=== PATIENT | male | born 1980 | race Caucasian/White ===

== ENCOUNTER 2017-06-25 18:01 | Emergency (ER) | payer SELFPAY ==
[2017-06-25 18:02] VITALS: BP 162/84; PULSE 87; RESP 16; TEMP 36.6; O2SAT 100; BMI 22.3
--- NOTE | 2017-06-25 18:36 | EKG12_ITS ---
Test Reason : SOB Blood Pressure : / mmHG Vent. Rate : 073 BPM Atrial Rate : 073 BPM P-R Int : 154 ms QRS Dur : 096 ms QT Int : 384 ms P-R-T Axes : 049 075 075 degrees QTc Int : 423 ms Normal sinus rhythm Left ventricular hypertrophy Abnormal ECG Confirmed by STEFANY MARTINEZ, CADE ([id number]), news video editor SAHIL ACEVES ([id number]) on 06/28/2017 1:34:31 PM Referred By: REYNALDO Confirmed By:CADE MCCALL MD
[2017-06-25 18:50] LABS: Absolute Lymphocyte Count 2.32 X10^3/ul (0.83-4.51); Absolute Neutrophil Count 6.7 X10^3/uL (2.0-7.7); Basophil# 0.07 X10^3/uL; Basophil% 0.6 % (0-1); Eosinophil# 0.81 X10^3/uL; Eosinophils% 7.2 % (0-5); Hematocrit 43.5 % (40-54); Hemoglobin 14.5 g/dl (13.0-16.5); Lymphocyte # 2.32 X10^3/ul (4.0); Lymphocyte % 20.7 % (19-41); Mean Corp Hgb Conc 33.3 g/gl (32-36); Mean Corpuscular Hgb 30.4 pg (27.0-32.0); Mean Corpuscular Volume 91.2 fL (80-94); Mean Platelet Vol. 9.6 fl (6.2-12.0); Monocyte# 1.27 X10^3/uL; Monocyte% 11.3 % (0-10); Neutrophil # 6.69 X10^3/uL (2.7-7.7); Neutrophil % 59.9 % (47-70); Platelet Count 216 K/mm3 (150-450); RBC Distribution Width CV 13.7 % (11.6-14.6); RBC Distribution Width SD 45.3 fl (35.1-43.9); Red Blood Count 4.77 M/mm3 (4.6-6.2); White Blood Count 11.2 K/mm3 (4.4-11.0)
--- NOTE | 2017-06-25 18:50 | RAD_ITS ---
STUDY: X-RAY CHEST REASON FOR EXAM: Male, 36 years old. Shortness of breath. History of aortic valve replacement 15 years ago. TECHNIQUE: PA and lateral views of the chest. COMPARISON: Prior chest radiograph of May 11, 2016 FINDINGS: The lungs are clear and expanded. There is no demonstrated pleural abnormality. Normal size heart. Status post prior midline sternotomy. Normal visualized pulmonary arteries. Calcific changes of anterior mediastinum or possibly the ascending aorta without dilatation stable from the prior exam. Normal visualized thoracic spine. Normal visualized ribs, clavicles, and shoulders. There is no demonstrated abnormality of the visualized soft tissue structures of the upper abdomen. RAD/Chest PA and Lateral IMPRESSION: No acute cardiopulmonary findings or changes. Negative for new consolidation, focal atelectasis or a substantial pleural effusion. Stable cardiac size status post prior midline sternotomy. Stable anterior mediastinal calcifications. Electronically Signed: Jany Boggs MD at 19:10 EDT , Service support ,
[2017-06-25] MEDS: Aspirin 81 MG TAB.CHEW 324 MG PO (18:53)
[2017-06-25 18:54] LABS: POSITIVE COUNT NO; POSITIVE DIFFERENTIAL NO; POSITIVE MORPHOLOGY NO
[2017-06-25 19:12] LABS: Anion Gap 6 (5-15); BUN 7 mg/dL (7-18); BUN/Creat Ratio 7.2 RATIO (10-20); Calcium,Total 8.2 mg/dL (8.5-10.1); Chloride 106 mmol/L (98-107); Creatinine, Serum 0.97 mg/dL (0.70-1.30); EST Glomerular Filtration Rate 94 mL/min (>60); Est Glom Filt Rate - Afr Amer 114 mL/min (>60); Estimated Creatinine Clearance 110.15 ml/min; Glucose 92 mg/dL (74-106); Potassium 3.9 mmol/L (3.5-5.1); Sodium Level 140 mmol/L (136-145)
[2017-06-25 19:20] LABS: BNP,B-Type NATRIURETIC PEPTIDE 110.8 pg/mL (0-100)
[2017-06-25 20:03] VITALS: RESP 18; O2SAT 100
--- NOTE | 2017-06-25 20:22 | ED.VISSUMM ---
- ER Visit Summary Date of Service: 06/25/17 Chief Complaint: Shortness of breath History of Present Illness: The patient is a 36 M presenting for evaluation due to shortness of breath. Patient states that he has a history of a aortic valve replacement that was performed 15 years ago. Patient states that he was told that the lifetime of his cadaver valve was probably around 12-15 years. Patient states that he has been noticing that he has been having a mild amount of increasing shortness of breath lately, but today he was carrying some pop and water into his house only 50 feet and felt that he was suddenly extremely dyspneic. Denies any chest pain with it. Denies any infectious signs or symptoms. 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 Physical Examination: Vital signs are within normal limits, patient is afebrile. General: Patient is well-nourished well-developed and in no acute distress. Head: Normocephalic, atraumatic Eyes: Pupils equal round and reactive bilaterally, extra occular motion intact bialterally ENT: Moist mucous membranes Neck: Supple, no lymphadenopathy, no JVD, no meningismus CVS: Heart regular rate and rhythm, 4 out of 6 murmur both systolic and diastolic noted over the right sternal border, rubs or gallops, radial pulses 2+ bilaterally Resp: Respirations nondistressed, lung sounds clear bilaterally Abdomen: Soft, nontender, nondistended, no palpable masses, normal bowel sounds Back: Nontender Extremities: Nontender, atraumatic, active full range of motion, no peripheral edema Skin: warm, no rashes, no petechia Neuro: Alert and oriented x 4, CN 2-12 intact, no lateralizing neurological defecits Psyc: Normal affect Test Results: CBC unremarkable, chemistry unremarkable, troponin negative, BNP mildly elevated at 110. Chest x-ray shows chronic changes no evidence of acute heart failure Emergency Department Course and Treatment: Patient presented with shortness of breath in the setting of a prosthetic aortic valve. Patient was evaluated for heart failure cardiac strain. His EKG shows LVH no evidence of acute ischemia. CBC chemistry troponin and BNP chest x-ray otherwise found to be unremarkable. Patient ambulated in the emergency department maintained oxygenation of 100%. Patient does very clearly have aortic insufficiency on physical exam as he has a significant diastolic murmur. I do not believe that the patient requires admission at this point, but I do believe that he should follow-up with his [facility] cardiology team to be evaluated for possible aortic valve replacement. Patient will be written for work restrictions no lifting greater than 50 pounds. Patient will follow up with cardiology. Disposition: Discharge Impression: 1. Dyspnea 2. Aortic regurgitation This note was generated with [employer] dictation software. It may contain incorrect words, spelling, and punctuation that were not noted in review of the chart prior to signing ED Disposition - Plan for ED Patient: Disposition: Home or Assisted Living Chief Complaint: General Illness Diagnosis: Aortic regurgitation Instructions: ED Dyspnea Shortness of Breath Additional Instructions: Followup with your cardiology team at [facility]
--- NOTE | 2017-06-25 20:27 | ED.DCSUM_ITS ---
- ER Visit Summary Date of Service: 06/25/17 Chief Complaint: Shortness of breath History of Present Illness: The patient is a 36 M presenting for evaluation due to shortness of breath. Patient states that he has a history of a aortic valve replacement that was performed 15 years ago. Patient states that he was told that the lifetime of his cadaver valve was probably around 12-15 years. Patient states that he has been noticing that he has been having a mild amount of increasing shortness of breath lately, but today he was carrying some pop and water into his house only 50 feet and felt that he was suddenly extremely dyspneic. Denies any chest pain with it. Denies any infectious signs or symptoms. 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 Physical Examination: Vital signs are within normal limits, patient is afebrile. General: Patient is well-nourished well-developed and in no acute distress. Head: Normocephalic, atraumatic Eyes: Pupils equal round and reactive bilaterally, extra occular motion intact bialterally ENT: Moist mucous membranes Neck: Supple, no lymphadenopathy, no JVD, no meningismus CVS: Heart regular rate and rhythm, 4 out of 6 murmur both systolic and diastolic noted over the right sternal border, rubs or gallops, radial pulses 2 + bilaterally Resp: Respirations nondistressed, lung sounds clear bilaterally Abdomen: Soft, nontender, nondistended, no palpable masses, normal bowel sounds Back: Nontender Extremities: Nontender, atraumatic, active full range of motion, no peripheral edema Skin: warm, no rashes, no petechia Neuro: Alert and oriented x 4, CN 2-12 intact, no lateralizing neurological defecits Psyc: Normal affect Test Results: CBC unremarkable, chemistry unremarkable, troponin negative, BNP mildly elevated at 110. Chest x-ray shows chronic changes no evidence of acute heart failure Emergency Department Course and Treatment: Patient presented with shortness of breath in the setting of a prosthetic aortic valve. Patient was evaluated for heart failure cardiac strain. His EKG shows LVH no evidence of acute ischemia. CBC chemistry troponin and BNP chest x-ray otherwise found to be unremarkable. Patient ambulated in the emergency department maintained oxygenation of 100%. Patient does very clearly have aortic insufficiency on physical exam as he has a significant diastolic murmur. I do not believe that the patient requires admission at this point, but I do believe that he should follow-up with his [facility] cardiology team to be evaluated for possible aortic valve replacement. Patient will be written for work restrictions no lifting greater than 50 pounds. Patient will follow up with cardiology. Disposition: Discharge Impression: 1. Dyspnea 2. Aortic regurgitation This note was generated with [employer] dictation software. It may contain incorrect words, spelling, and punctuation that were not noted in review of the chart prior to signing ED Disposition - Plan for ED Patient: Disposition: Home or Assisted Living Chief Complaint: General Illness Diagnosis: Aortic regurgitation Instructions: ED Dyspnea Shortness of Breath Additional Instructions: Followup with your cardiology team at [facility]
[2017-06-25 20:39] VITALS: BP 128/83; PULSE 77; RESP 18; O2SAT 98
== END 2017-06-25 20:40 | disposition home or self-care (01) ==
PROVIDERS: Emergency Provider Emergency Medicine
DX: R06.00 Dyspnea, unspecified (principal); I35.1 Nonrheumatic aortic (valve) insufficiency
CPT/HCPCS: 71046; 80048; 83880; 84484; 85025; 93005; 99285; A4216

== ENCOUNTER 2017-07-05 21:50 | Emergency (ER) | payer SELFPAY ==
[2017-07-05 21:51] VITALS: BP 127/67; PULSE 87; RESP 16; TEMP 37.1; O2SAT 98; BMI 23.1
--- NOTE | 2017-07-05 22:06 | NURSING ---
CALL CENTER CONSULTANT CALLED FOR EKG, PULLED OLD EKG'S FOR
--- NOTE | 2017-07-05 22:36 | EKG12_ITS ---
Test Reason : CHEST Blood Pressure : / mmHG Vent. Rate : 082 BPM Atrial Rate : 082 BPM P-R Int : 154 ms QRS Dur : 094 ms QT Int : 370 ms P-R-T Axes : 042 075 075 degrees QTc Int : 432 ms Normal sinus rhythm Left ventricular hypertrophy Abnormal ECG Confirmed by STEFANY MARTINEZ, CADE ([id number]), editorial intern SAHIL ACEVES ([id number]) on 07/08/2017 1:54:00 PM Referred By: Confirmed By:CADE MCCALL MD
[2017-07-05 22:46] VITALS: BP 122/74; PULSE 78; RESP 14; O2SAT 98
--- NOTE | 2017-07-05 22:48 | ED.DCSUM_ITS ---
- ER Visit Summary Date of Service: 07/05/17 Chief Complaint: [] Palpitations History of Present Illness: The patient is a 36 M complaining of palpitations for last 4 days gradual onset intermittent lasting seconds at a time. Feels in his chest. No pain. Occasionally feels pauses. Seen in the emergency department approximately 10 days ago and had workup for some dyspnea. He has aortic regurg. He had his aortic valve replaced 15 years ago. 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 He has no appointment made since his visit 10 days ago. He denies any significant caffeine or energy drinks. No current shortness of breath. Physical Examination: Vital signs reviewed General: Well-nourished well-developed Head: Normocephalic atraumatic Eyes: Pupils equal round and reactive to light extraocular movements intact ENT: TMs clear no hemotympanum no trauma Neck: Nontender full range of motion Cardiovascular: Regular rate rhythm 2/6 diastolic aortic insufficiency murmur. Respiratory: No distress clear to auscultation bilaterally chest nontender Abdomen: Soft nontender nondistended normal bowel sounds no masses Back: Nontender no CVA tenderness Extremities: Nontender active range of motion ?4 extremities no trauma Skin: Normal color no trauma Neuro alert oriented cranial nerves II through XII intact normal strength sensation reflexes Test Results: [] Emergency Department Course and Treatment: [] EKG shows sinus at 82 with no acute disease. LVH pattern unchanged from prior. Patient monitored on the cardiac rehabilitation specialist without any further arrhythmias. Reassured and will follow-up. Given a referral. Treatment Plan: [] Disposition: [] Impression: [] Heart palpitations Aortic insufficiency - chronic This note was generated with [employer] dictation software. It may contain incorrect words, spelling, and punctuation that were not noted in review of the chart prior to signing ED Disposition - Plan for ED Patient: Chief Complaint: Palpitations Referrals: Care Physician,No Primary [Primary Care Provider] -
--- NOTE | 2017-07-05 22:48 | ED.DEP ---
ED Disposition - Plan for ED Patient: Disposition: Home or Assisted Living Chief Complaint: Palpitations Instructions: ED Palpitations Referrals: Care Physician,No Primary [Primary Care Provider] - Rich Dotson DO [NON CLINICAL AFFILIATE] -
[2017-07-05 23:17] VITALS: BP 120/83; PULSE 72; RESP 16; O2SAT 98
== END 2017-07-05 23:22 | disposition home or self-care (01) ==
LOC: ED 23:10
PROVIDERS: Emergency Provider Emergency Medicine
DX: R00.2 Palpitations (principal); I35.1 Nonrheumatic aortic (valve) insufficiency; Z95.2 Presence of prosthetic heart valve
CPT/HCPCS: 93005; 99284

== ENCOUNTER 2017-07-24 17:37 | Emergency (ER) | payer SELFPAY ==
[2017-07-24 17:38] VITALS: BP 110/56; PULSE 92; RESP 16; TEMP 36.6; O2SAT 100; BMI 20.7
--- NOTE | 2017-07-24 17:48 | ED.VISSUMM ---
- ER Visit Summary Date of Service: 07/24/17 Chief Complaint: Pain localized to the upper right bicuspids History of Present Illness: The patient is a 36 M status post cadaver aortic valve replacement 15 years ago who presents because of concern for dental infection. He complains of pain fullness above the right first and second bicuspid tooth. He denies fever, chills night sweats. He denies history of SPE or being immune suppressed. He denies inability to open or close his mouth. He does not give anything in particular that makes the pain better or worse. He denies any skin lesions. He has no other complaints please see T-sheet. Physical Examination: Vital signs are normal. He is afebrile. There are no obvious cavities noted. He is tender to percussion right upper first and second bicuspid. There is no periodontal abscess. There is no facial swelling, erythema or warmth. There is no fluctuance. There is no trismus. Posterior pharynx erythema or exudate. Uvula midline. Trachea is midline. There is no stridor. Heart is regular. Lungs are clear to auscultation. There are no skin lesions and specifically possible nodes or Janeway lesions. He has no splinter hemorrhages. Test Results: None Emergency Department Course and Treatment: Patient was treated with 500 mg of Naprosyn and 300 mg clindamycin p.o. Treatment Plan: Prescription for Naprosyn and clindamycin and follow-up at [facility] where he has been seen in the past Disposition: Discharged to home Impression: 1. Dental pain right upper first and second bicuspid 2. Possible periodontal abscess This note was generated with [employer] dictation software. It may contain incorrect words, spelling, and punctuation that were not noted in review of the chart prior to signing ED Disposition - Plan for ED Patient: Disposition: Home or Assisted Living Chief Complaint: Dental Instructions: ED Tooth Pain Prescriptions: Naproxen [Naprosyn] 500 mg PO BID #10 tab Clindamycin HCl 300 mg PO 4X/DAY #30 cap Referrals: Zahraa Gamble, JEANA-C [Primary Care Provider] - [facility] [NON-STAFF] - 3-5 Days
--- NOTE | 2017-07-24 17:55 | ED.DCSUM_ITS ---
- ER Visit Summary Date of Service: 07/24/17 Chief Complaint: Pain localized to the upper right bicuspids History of Present Illness: The patient is a 36 M status post cadaver aortic valve replacement 15 years ago who presents because of concern for dental infection. He complains of pain fullness above the right first and second bicuspid tooth. He denies fever, chills night sweats. He denies history of SPE or being immune suppressed. He denies inability to open or close his mouth. He does not give anything in particular that makes the pain better or worse. He denies any skin lesions. He has no other complaints please see T- sheet. Physical Examination: Vital signs are normal. He is afebrile. There are no obvious cavities noted. He is tender to percussion right upper first and second bicuspid. There is no periodontal abscess. There is no facial swelling , erythema or warmth. There is no fluctuance. There is no trismus. Posterior pharynx erythema or exudate. Uvula midline. Trachea is midline. There is no stridor. Heart is regular. Lungs are clear to auscultation. There are no skin lesions and specifically possible nodes or Janeway lesions. He has no splinter hemorrhages. Test Results: None Emergency Department Course and Treatment: Patient was treated with 500 mg of Naprosyn and 300 mg clindamycin p.o. Treatment Plan: Prescription for Naprosyn and clindamycin and follow-up at [facility] where he has been seen in the past Disposition: Discharged to home Impression: 1. Dental pain right upper first and second bicuspid 2. Possible periodontal abscess This note was generated with [employer] dictation software. It may contain incorrect words, spelling, and punctuation that were not noted in review of the chart prior to signing ED Disposition - Plan for ED Patient: Disposition: Home or Assisted Living Chief Complaint: Dental Instructions: ED Tooth Pain Prescriptions: Naproxen [Naprosyn] 500 mg PO BID #10 tab Clindamycin HCl 300 mg PO 4X/DAY #30 cap Referrals: Zahraa Gamble, JEANA-C [Primary Care Provider] - [facility] [NON-STAFF] - 3-5 Days
[2017-07-24] MEDS: Naproxen 250 MG Tablet 500 MG PO (17:57)
[2017-07-24] MEDS: Clindamycin HCl 150 MG Capsule 300 MG PO (17:57)
== END 2017-07-24 18:02 | disposition home or self-care (01) ==
PROVIDERS: Emergency Provider Emergency Medicine; Family Provider Nurse Practitioner Family; PCP Nurse Practitioner Family
DX: K08.89 Other specified disorders of teeth and supporting structures (principal); Z72.0 Tobacco use; Z95.4 Presence of other heart-valve replacement
CPT/HCPCS: 99283

== ENCOUNTER → 2017-08-25 10:54 | Outpatient (CLI) | payer MEDICAID, SELFPAY ==
--- NOTE | 2017-08-25 10:56 | ECHOD_ITS ---
Reason For Study: Murmur Procedure This was a 2D Doppler, Color Flow transthoracic echocardiogram. Exam performed in department. Left Ventricle Normal LV size. Mild concentric left ventricular hypertrophy. Left ventricular systolic function is normal. The estimated ejection fraction is 60 %. Transmitral diastolic flow velocities suggest mild (stage 1) diastolic dysfunction (reversed pattern). No regional wall motion abnormalities noted. Atria The left atrium is mildly enlarged. Normal right atrium. Mitral Valve Bileaflet diffuse mitral valve thickening. Mild-Moderate (1-2+) eccentric mitral valve insufficiency. Tricuspid Valve Normal tricuspid valve. Aortic Valve Peak aortic valve gradient 71 mmHg. Mean aortic valve gradient 30 mmHg. Moderate aortic stenosis. Calculated aortic valve area (continuity equation) is 1.1 cm2. Bioprosthetic aortic valve. Great Vessels Normal aortic root. The pulmonary artery is normal size. Normal inferior vena cava. Pericardium/Pleural No pericardial effusion. MMode/2D Measurements & Calculations LVIDd: 5.2 cm IVSd: 1.3 cm LVOT diam: 2.0 cm LVIDs: 3.4 cm LVPWd: 1.2 cm LVOT area: 3.1 cm2 FS: 34.4 % LAV(MOD-bp): 69.0 ml Aortic Valve Planimetry: 1.3 cm2 LA A4 area: 23.8 cm2 LAV(MOD-bp) Indexed: 37.0 ml/m2 LAV(MOD-sp2): 51.5 ml LAV(MOD-sp4): 90.3 ml RA A4 area: 12.9 cm2 Time Measurements MV dec time: 0.17 sec Doppler Measurements & Calculations MV E max audi: 82.7 cm/sec Lat Peak E' Audi: 12.3 cm/sec Med Peak E' Audi: 9.0 cm/sec MV A max audi: 109.8 cm/sec E/E' lat: 6.7 E/E' med: 9.1 MV E/A: 0.75 MV V2 max: 118.6 cm/sec MV P1/2t max audi: 111.6 cm/sec Ao V2 max: 422.3 cm/sec MV max P.6 mmHg MV P1/2t: 61.3 msec Ao max P.3 mmHg MV V2 mean: 68.2 cm/sec MV dec slope: 533.2 cm/sec2 Ao V2 mean: 244.2 cm/sec MV mean P.2 mmHg MVA(P1/2t): 3.6 cm2 Ao mean P.1 mmHg MV V2 VTI: 25.6 cm Ao V2 VTI: 84.8 cm MVA(VTI): 3.9 cm2 JENNIFER(I,D): 1.2 cm2 JENNIFER(V,D): 1.1 cm2 LV V1 max: 148.7 cm/sec SV(LVOT): 99.1 ml PA V2 max: 84.7 cm/sec LV V1 max P.8 mmHg LV V1 mean P.5 mmHg LV V1 mean: 97.2 cm/sec LV V1 VTI: 31.7 cm Interpretation Summary Normal LV size. Mild concentric left ventricular hypertrophy. Left ventricular systolic function is normal. The estimated ejection fraction is 60 %. Transmitral diastolic flow velocities suggest mild (stage 1) diastolic dysfunction (reversed pattern). Mild-Moderate (1-2+) eccentric mitral valve insufficiency. Bioprosthetic aortic valve. Moderate aortic stenosis. Ordering Physician: Anatoly Helms Referring Physician: Anatoly Helms Performed By: Michi Abraham [facility]
== END ==
PROVIDERS: Visit Provider Internal Medicine Cardiovascular Disease
DX: Z95.2 Presence of prosthetic heart valve (principal)
CPT/HCPCS: 93306

== ENCOUNTER 2017-11-02 02:56 | Inpatient (IN) | payer MEDICAID, SELFPAY ==
[2017-11-02] VITALS (30 sets, daily range): BP systolic 113–129; BP diastolic 42–60; PULSE 59–111; RESP 12–33; TEMP 36.6–37.4; O2SAT 93–100; BMI 22.6; BMI 21.7
--- NOTE | 2017-11-02 03:05 | RAD_ITS ---
STUDY: X-RAY CHEST REASON FOR EXAM: Male, 37 years old. Chest pain and SOB TECHNIQUE: Frontal and lateral views of the chest. COMPARISON: 06/25/2017 FINDINGS: Median sternotomy wires. COPD without acute alveolar disease. There is no demonstrated pleural abnormality. Normal size heart. Normal mediastinum and zuleyma. Normal visualized pulmonary arteries. Normal visualized aortic arch and descending thoracic aorta. Normal visualized thoracic spine. Normal visualized ribs, clavicles, and shoulders. There is no demonstrated abnormality of the visualized soft tissue structures of the upper abdomen. RAD/Chest PA and Lateral IMPRESSION: COPD without acute alveolar disease. Electronically Signed: Alfonzo Coe MD at 3:23 EDT Tel , Service support ,
--- NOTE | 2017-11-02 03:05 | EKG12_ITS ---
Test Reason : REPEAT CHF Blood Pressure : / mmHG Vent. Rate : 098 BPM Atrial Rate : 098 BPM P-R Int : 146 ms QRS Dur : 088 ms QT Int : 358 ms P-R-T Axes : 054 074 070 degrees QTc Int : 457 ms Normal sinus rhythm Left atrial enlargement Left ventricular hypertrophy Abnormal ECG Confirmed by ETHEL MARTINEZ, DIGNA ([id number]), editorial assistant SAHIL ACEVES ([id number]) on 11/03/2017 10:18:17 AM Referred By: SHANE Confirmed By:DIGNA DAVENPORT MD
[2017-11-02 03:13] LABS: Absolute Lymphocyte Count 3.83 X10^3/ul (0.83-4.51); Basophil% 0.8 % (0-1); Eosinophil# 0.99 X10^3/uL; Eosinophils% 7.4 % (0-5); Hematocrit 41.2 % (40-54); Lymphocyte # 3.83 X10^3/ul (4.0); Lymphocyte % 28.8 % (19-41); Mean Corpuscular Volume 91.2 fL (80-94); Mean Platelet Vol. 10.3 fl (6.2-12.0); Monocyte# 1.39 X10^3/uL; Monocyte% 10.4 % (0-10); Neutrophil # 6.98 X10^3/uL (2.7-7.7); Neutrophil % 52.4 % (47-70); POSITIVE COUNT NO; POSITIVE DIFFERENTIAL NO; POSITIVE MORPHOLOGY NO; Platelet Count 216 K/mm3 (150-450); RBC Distribution Width CV 14.2 % (11.6-14.6); RBC Distribution Width SD 46.7 fl (35.1-43.9); Red Blood Count 4.52 M/mm3 (4.6-6.2); White Blood Count 13.3 K/mm3 (4.4-11.0)
[2017-11-02 03:26] LABS: Anion Gap 9 (5-15); BUN 15 mg/dL (7-18); BUN/Creat Ratio 12.7 RATIO (10-20); Calcium,Total 8.5 mg/dL (8.5-10.1); Chloride 107 mmol/L (98-107); Creatinine, Serum 1.18 mg/dL (0.70-1.30); EST Glomerular Filtration Rate 75 mL/min (>60); Est Glom Filt Rate - Afr Amer 90 mL/min (>60); Estimated Creatinine Clearance 91.08 ml/min; Glucose 97 mg/dL (74-106); Potassium 3.5 mmol/L (3.5-5.1); Sodium Level 145 mmol/L (136-145)
[2017-11-02 03:57] LABS: D-Dimer Quantitative (DVT/PE) 0.62 FEU/ug/m (0.27-0.49)
--- NOTE | 2017-11-02 03:58 | CT_ITS ---
STUDY: CTA CHEST REASON FOR EXAM: Male, 37 years old. Chest pain, tachycardia, elevated d-dimer RADIATION DOSAGE (If Supplied By Facility): CTDIvol = ( 8.78 ) mGy, DLP = ( 273.15 ) mGycm TECHNIQUE: The examination was performed with the intravenous administration of 100ML ml of Isovue 370 contrast material. Post-processing of the angiographic images was performed, with multiplanar reformation and 3D reconstruction. Individualized dose optimization techniques were used for this CT. COMPARISON: None. FINDINGS: 19 mm right paratracheal air cyst. Normal enhancement of the main pulmonary artery and right and left pulmonary arteries. Normal enhancement of the bilateral peripheral pulmonary arteries. There is no demonstrated pulmonary embolism. Postoperative changes involving the ascending aorta. There is no demonstrated aortic dissection. Normal heart and pericardium. Normal mediastinum. Normal hilar regions. Normal visualized trachea and bronchi. Biapical emphysema. Mild interstitial edema in the lung apices and lung bases. Normal pleura. Normal chest wall structures. Median sternotomy wires. Normal visualized upper abdomen. CT/CTA Chest W/WO Contrast IMPRESSION: Normal CTA chest examination, without a demonstrated pulmonary embolism or arterial dissection. Mild interstitial edema in the lung apices and lung bases. Electronically Signed: Alfonzo Coe MD at 4:43 EDT Tel , Service support ,
--- NOTE | 2017-11-02 04:01 | ED.RN ---
D-DIMER OF 0.[address] LYNN[address] VERBALIZED UNDERSTANDING
[2017-11-02] MEDS: Morphine 4 MG/ML Syringe IV (04:49)
[2017-11-02] MEDS: Ondansetron 4 MG/2 ML Vial IV (04:49)
--- NOTE | 2017-11-02 04:55 | ED.VISSUMM ---
- ER Visit Summary Date of Service: 11/02/17 Chief Complaint: Burning pressure chest pain with shortness of breath since Wednesday History of Present Illness: The patient is a 37 M who presents with chest pressure burning sensation with shortness of breath that started Wednesday. He states the pressure is worse when he supine. There is no alleviating, precipitating or exacerbating factors with regard to the burning pain. He denies hematemesis, melena hematochezia. He does have a cough which is nonproductive. He is a smoker of 1/2-1 pack per day. He denies history of PE or DVT. He denies any risk factors. He does have history of non-rheumatic aortic and mitral valvular disease. He denies any leg pain, swelling discoloration. He denies headache, visual, ocular auditory symptoms. He denies rhinorrhea, congestion or postnasal drainage. Denies sore throat, difficulty breathing, dysphonia or dysphasia. He does complain of midsternal chest pain as previously described. He denies orthopnea or PND. He does report dyspnea on exertion. He denies any GI or symptoms. He denies any skin lesions. He has a history of bipolar affective disorder, hypertrophic cardiomyopathy, nonrheumatic aortic valvular disease and nonrheumatic mitral valvular heart disease. He is status post aortic valve replacement, cadaveric. Physical Examination: Vital signs marked for heart rate of 111 rest rate of 29 not 21. He is not febrile nor is he hypoxic. He appears uncomfortable. Head is atraumatic normocephalic. Pupils are equal round reactive. Extraocular muscles are intact. TMs are pearly white with landmarks noted. Nares patent with no drainage. Posterior pharynx without erythema or exudate. Uvula is midline. There is no dysphonia or dysphasia. Trachea is midline. There is no stridor with auscultation of the neck. Heart is rapid and regular with aortic crescendoing murmur as well as mitral regurgitant murmur. Abdomen is soft nontender. Bowel sounds are present normal. Insert lower extremity DVT neuro exam is nonfocal. Test Results: Two-view chest x-ray reveals mild cardiomegaly and chronic changes. White count elevated 13.3 thousand. Electro panels unremarkable. Troponin is normal and 0.025. D-dimer is elevated 0.62. ABG on 3 L reveals a pH of 7.4, CO2 of 38, PaO2 of 56, bicarbonate 23.8 with an 89% saturation. Portable chest x-ray reveals bilateral pulmonary edema. Emergency Department Course and Treatment: With complaint of dyspnea, tachycardia will obtain d-dimer since he is not PERC negative. Chest x-ray was obtained to evaluate for pneumonia, CHF or pneumothorax. Baseline blood work was obtained as well as troponin and d-dimer. D-dimer was elevated and reason for CTA. CTA reveals mild interstitial changes in the lower lung siegel as well as upper lung siegel. Chest x-ray did not reveal evidence of CHF. I was informed by nursing staff that he is now hypoxic requiring oxygen. He was reevaluated now he has bilateral rales and has blood-streaked clear sputum which raises concern for CHF. A BMP was ordered as well as blood gas since he is on 4-5 L and only saturating 84-85%. Treatment Plan: Patient will be admitted to the hospital. Disposition is pending results of ABG and BNP. He was given 4 mg of morphine since he complained of pleuritic pain and hesitant to give him anti-inflammatory. Dr. Farrell who is on for the heart rate was paged to assist with treatment of Mr. Newberry since he is not clinically fluid overloaded and he is not hypertensive. Patient will need a stat echocardiogram. Patient had a transthoracic echo September 05 which revealed preserved ejection fraction 60% with mild diastolic dysfunction and 1-2+ mitral regurgitation. Even though patient is not clinically fluid overload. Dr. Enrique Farrell recommended diuresis. Since patient is never had Lasix he was initially given 20 mg. Because of his respiratory distress he was placed on BiPAP. Disposition: Admission Impression: 1. Acute respiratory failure with hypoxia 2. Acute pulmonary edema 3. History of nonrheumatic aortic and mitral valvular disease 4. Status post cadaveric aortic valve replacement 15 years ago 5. History of tobacco abuse This note was generated with [employer] dictation software. It may contain incorrect words, spelling, and punctuation that were not noted in review of the chart prior to signing ED Disposition - Plan for ED Patient: Chief Complaint: Chest Pain Referrals: Kaylee Kong,Danelle Wallace [Primary Care Provider] -
--- NOTE | 2017-11-02 05:14 | RAD_ITS ---
STUDY: X-RAY CHEST REASON FOR EXAM: Male, 37 years old. Bobbi, hemoptysis, hypoxia TECHNIQUE: Single frontal view of the chest. COMPARISON: 11/02/2017 FINDINGS: Median sternotomy wires. Evolving bibasilar alveolar disease. There is no demonstrated pleural abnormality. Normal size heart. Normal mediastinum and zuleyma. Normal visualized pulmonary arteries. Normal visualized aortic arch and descending thoracic aorta. Normal visualized thoracic spine. Normal visualized ribs, clavicles, and shoulders. There is no demonstrated abnormality of the visualized soft tissue structures of the upper abdomen. RAD/Chest 1 View (Portable) IMPRESSION: Evolving bibasilar alveolar disease. Electronically Signed: Alfonzo Coe MD at 6:45 EDT Tel , Service support ,
[2017-11-02 05:26] LABS: Allen Test POS; Base Excess -1 mmol/L (-2 to +2); Bicarbonate 23.8 mmol/L (22-26); Blood Gas Specimen Type ART; O2 Delivery Device Nasal Can; PO2 56 mmHG (75-100); SITE L Radial; SO2 89 % (95-99); Time Given 515; Total Carbon Dioxide 25 mmol/L; pCO2 38.3 mmHg (35-45)
[2017-11-02] MEDS: Furosemide 20 MG/2 ML VIAL IV (05:49)
--- NOTE | 2017-11-02 05:50 | EKG12_ITS ---
Test Reason : CP Blood Pressure : / mmHG Vent. Rate : 109 BPM Atrial Rate : 109 BPM P-R Int : 138 ms QRS Dur : 090 ms QT Int : 340 ms P-R-T Axes : 059 076 071 degrees QTc Int : 457 ms Sinus tachycardia Left atrial enlargement Left ventricular hypertrophy Nonspecific ST abnormality Abnormal ECG Confirmed by ETHEL MARTINEZ, DIGNA ([id number]), editor & co founder SAHIL ACEVES ([id number]) on 11/03/2017 10:18:34 AM Referred By: SHANE Confirmed By:DIGNA DAVENPORT MD
[2017-11-02 05:54] LABS: BNP,B-Type NATRIURETIC PEPTIDE 423.6 pg/mL (0-100)
--- NOTE | 2017-11-02 05:56 | PCM.HP.STD ---
Problem List (1) Chest pain Status: Acute Qualifiers: Ischemic chest pain type: unspecified angina pectoris type (2) Moderate aortic stenosis Status: Chronic (3) Non-rheumatic mitral regurgitation Status: Chronic (4) Left ventricular hypertrophy Status: Chronic (5) Dyspnea on exertion Status: Acute (6) H/O aortic valve replacement Status: Chronic Comment: 23 mm aortic homograft @ [facility] (7) Intermittent palpitations Status: Acute History of Present Illness Date of Admission: 11/02/17 Chief Complaint: chest pain and shortness of breath The patient is a 37 year old male patient with a significant past medical history of aortic valve replacement 15 years ago with a cadaveric valve. He presents to the ER with chest pain and shortness of breath. The onset of this began on Wednesday and has progressed since that time. Initially his D-Dimer was elevated so a CTA was done that does not show a pulmonary embolism. The chest x-ray demonstrated some pulmonary congestion. ABG shows his PO2 to be 56 and breathing has been labored. BIPAP and Lasix were initiated in the ER under the advice of boat builder. Troponin is in the indeterminate range. Last echo done in August this year demonstrated moderate aortic stenosis with an EF of 60%. The patient will be transferred to the ICU for further management. Past Medical History Past Medical History (Chronic Problems): Chronic Problems (Last Reviewed 08/04/17 @ 11:09 by Anatoly Helms MD) Moderate aortic stenosis (Chronic) Non-rheumatic mitral regurgitation (Chronic) Non-rheumatic aortic regurgitation (Chronic) Left ventricular hypertrophy (Chronic) H/O aortic valve replacement (Chronic 07/18/02) 23 mm aortic homograft @ [facility] Medical History: Medical History (Last Reviewed 08/04/17 @ 11:09 by Anatoly Helms MD) Non-rheumatic mitral regurgitation (Chronic) I34.0 Non-rheumatic aortic regurgitation (Chronic) I35.1 Left ventricular hypertrophy (Chronic) I51.7 Bipolar disorder F31.9 Allergies No Known Allergies Allergy (Verified 07/24/17 17:39) Home Medications: Ambulatory Orders Medication Instructions Recorded NK [NK] 11/02/17 Surgical History: Surgical History (Last Reviewed 08/04/17 @ 11:09 by Anatoly Helms MD) H/O aortic valve replacement (Chronic) Onset Date: 07/18/02 Z95.2 23 mm aortic homograft @ [facility] Smoking Status: Current every day smoker - *Family History Maternal History Items: No pertinent history Review of Systems Constitutional: Denies: Chills, Fever, Weight Change HEENT: Denies: Head Aches, Sinus Congestion, Sinus Drainage Cardiovascular: Reports: Chest Pain. Denies: Palpitations Respiratory: Reports: Shortness of breath at rest. Denies: Cough, Sputum production Gastrointestinal: Denies: Abdominal Pain, Nausea, Vomiting Genitourinary: Denies: Dysuria Musculoskeletal: Denies: Joint Pain, Joint Tenderness Skin: Denies: Rash, Wounds Neurological: Denies: Numbness, Tingling, Focal weakness Psychiatric: Denies: Anxiety, Depression, Homicidal Ideations, Suicidal Ideations Hematologic/ Lymphatic: Denies: Easy Bruising, Easy Bleeding VTE Information - Inpt Only VTE Present on Admission: No VTE Mechan Device Prophylaxis: None VTE Pharm Prophylaxis ordered?: Yes Patient Problems: Active and Suspected Problems (Last Reviewed 08/04/17 @ 11:09 by Anatoly Helms MD) Chest pain (Acute) - Physical Exam General: Alert, Oriented x3, Cooperative HEENT: Atraumatic, Normocephalic Neck: Supple Lungs: No rhonchi, No wheeze, No rales, Diminished Cardiovascular: Murmur - 4/6 ZOHRA, Tachycardic Abdomen: Bowel Sounds Present, Soft, Non Tender Extremities: No edema Skin: No rashes Musculoskeletal: No Tenderness to Palpation of Joints or Extremities Neurological: Neuro grossly intact Psych/Mental Status: Normal Affect, Appropriate Vital Signs Temp Pulse Resp BP Pulse Ox 97.8 F 98 24 H 121/53 H 96 11/02/17 02:57 11/02/17 05:00 11/02/17 05:00 11/02/17 05:00 11/02/17 05:00 Oxygen Flow Rate (L/min) 4 Oxygen Delivery Method Nasal Cannula Weight: 162 lb 7.691 oz Body Mass Index (BMI) 22.6 Laboratory Tests Past 24 Hrs 11/02/17 11/02/17 11/02/17 03:00 03:00 03:00 WBC 13.3 H RBC 4.52 L Hgb 14.0 Hct 41.2 MCV 91.2 MCH 31.0 MCHC 34.0 RDW 14.2 RDW Differential 46.7 H Plt Count 216 MPV 10.3 Immature Gran % (Auto) 0.200 Neut % (Auto) 52.4 Lymph % (Auto) 28.8 [place] % (Auto) 10.4 H Eos % (Auto) 7.4 H Baso % (Auto) 0.8 Absolute Neuts (auto) 7.0 Absolute Lymphs (auto) 3.83 Total Counted Not Reportable D-Dimer Quant (PE/DVT) 0.62 H* Specimen Type Sample Site pH Bicarbonate Actual POC Total CO2 Base Excess O2 Saturation ABG pCO2 ABG pO2 Norman Test O2 Delivery Device Liter Flow Blood Gas Notified Whom Blood Gas Notified Time Sodium 145 Potassium 3.5 Chloride 107 Carbon Dioxide 29.0 Anion Gap 9 BUN 15 Creatinine 1.18 Estim Creat Clear Calc 91.08 Est GFR (MDRD) Af Amer 90 Est GFR (MDRD) Non-Af 75 BUN/Creatinine Ratio 12.7 Glucose 97 Calcium 8.5 Troponin I 0.025 B-Natriuretic Peptide 11/02/17 11/02/17 05:04 05:18 WBC RBC Hgb Hct MCV MCH MCHC RDW RDW Differential Plt Count MPV Immature Gran % (Auto) Neut % (Auto) Lymph % (Auto) [place] % (Auto) Eos % (Auto) Baso % (Auto) Absolute Neuts (auto) Absolute Lymphs (auto) Total Counted D-Dimer Quant (PE/DVT) Specimen Type ART Sample Site L Radial pH 7.40 Bicarbonate Actual 23.8 POC Total CO2 25 Base Excess -1 O2 Saturation 89 L ABG pCO2 38.3 ABG pO2 56 L Norman Test POS O2 Delivery Device Nasal Can Liter Flow 3.0 Blood Gas Notified Whom ED MD Blood Gas Notified Time 515 Sodium Potassium Chloride Carbon Dioxide Anion Gap BUN Creatinine Estim Creat Clear Calc Est GFR (MDRD) Af Amer Est GFR (MDRD) Non-Af BUN/Creatinine Ratio Glucose Calcium Troponin I B-Natriuretic Peptide 423.6 H Assessment/Plan All Active Problems (Last Reviewed 08/04/17 @ 11:09 by Anatoly Helms MD) Chest pain (Acute) Near syncope (Acute) Dyspnea on exertion (Acute) Intermittent palpitations (Acute) Chronic Problems (Last Reviewed 08/04/17 @ 11:09 by Anatoly Helms MD) Moderate aortic stenosis (Chronic) Non-rheumatic mitral regurgitation (Chronic) Non-rheumatic aortic regurgitation (Chronic) Left ventricular hypertrophy (Chronic) H/O aortic valve replacement (Chronic 07/18/02) 23 mm aortic homograft @ [facility] Plan - admit to ICU - consult Dr Farrell - cycle cardiac markers. - Repeat echocardiogram - continue BIPAP - cbc, bmp,BNTP in am - continue routine home medications - LMWH for DVT prophylaxis Code Visit Inpatient E&M: 81534 Init Hosp L3
--- NOTE | 2017-11-02 06:02 | HP.PCM_ITS ---
Problem List (1) Chest pain Status: Acute Qualifiers: Ischemic chest pain type: unspecified angina pectoris type (2) Moderate aortic stenosis Status: Chronic (3) Non-rheumatic mitral regurgitation Status: Chronic (4) Left ventricular hypertrophy Status: Chronic (5) Dyspnea on exertion Status: Acute (6) H/O aortic valve replacement Status: Chronic Comment: 23 mm aortic homograft @ [facility] (7) Intermittent palpitations Status: Acute History of Present Illness Date of Admission: 11/02/17 Chief Complaint: chest pain and shortness of breath The patient is a 37 year old male patient with a significant past medical history of aortic valve replacement 15 years ago with a cadaveric valve. He presents to the ER with chest pain and shortness of breath. The onset of this began on Wednesday and has progressed since that time. Initially his D-Dimer was elevated so a CTA was done that does not show a pulmonary embolism. The chest x- ray demonstrated some pulmonary congestion. ABG shows his PO2 to be 56 and breathing has been labored. BIPAP and Lasix were initiated in the ER under the advice of broadband installer. Troponin is in the indeterminate range. Last echo done in August this year demonstrated moderate aortic stenosis with an EF of 60%. The patient will be transferred to the ICU for further management. Past Medical History Past Medical History (Chronic Problems): Chronic Problems (Last Reviewed 08/04/17 @ 11:09 by Anatoly Helms MD) Moderate aortic stenosis (Chronic) Non-rheumatic mitral regurgitation (Chronic) Non-rheumatic aortic regurgitation (Chronic) Left ventricular hypertrophy (Chronic) H/O aortic valve replacement (Chronic 07/18/02) 23 mm aortic homograft @ [facility] Medical History: Medical History (Last Reviewed 08/04/17 @ 11:09 by Anatoly Helms MD) Non-rheumatic mitral regurgitation (Chronic) I34.0 Non-rheumatic aortic regurgitation (Chronic) I35.1 Left ventricular hypertrophy (Chronic) I51.7 Bipolar disorder F31.9 Allergies No Known Allergies Allergy (Verified 07/24/17 17:39) Home Medications: Ambulatory Orders Medication Instructions Recorded NK [NK] 11/02/17 Surgical History: Surgical History (Last Reviewed 08/04/17 @ 11:09 by Anatoly Helms MD) H/O aortic valve replacement (Chronic) Onset Date: 07/18/02 Z95.2 23 mm aortic homograft @ [facility] Smoking Status: Current every day smoker - *Family History Maternal History Items: No pertinent history Review of Systems Constitutional: Denies: Chills, Fever, Weight Change HEENT: Denies: Head Aches, Sinus Congestion, Sinus Drainage Cardiovascular: Reports: Chest Pain. Denies: Palpitations Respiratory: Reports: Shortness of breath at rest. Denies: Cough, Sputum production Gastrointestinal: Denies: Abdominal Pain, Nausea, Vomiting Genitourinary: Denies: Dysuria Musculoskeletal: Denies: Joint Pain, Joint Tenderness Skin: Denies: Rash, Wounds Neurological: Denies: Numbness, Tingling, Focal weakness Psychiatric: Denies: Anxiety, Depression, Homicidal Ideations, Suicidal Ideations Hematologic/ Lymphatic: Denies: Easy Bruising, Easy Bleeding VTE Information - Inpt Only VTE Present on Admission: No VTE Mechan Device Prophylaxis: None VTE Pharm Prophylaxis ordered?: Yes Patient Problems: Active and Suspected Problems (Last Reviewed 08/04/17 @ 11:09 by Anatoly Helms MD ) Chest pain (Acute) - Physical Exam General: Alert, Oriented x3, Cooperative HEENT: Atraumatic, Normocephalic Neck: Supple Lungs: No rhonchi, No wheeze, No rales, Diminished Cardiovascular: Murmur - 4/6 ZOHRA, Tachycardic Abdomen: Bowel Sounds Present, Soft, Non Tender Extremities: No edema Skin: No rashes Musculoskeletal: No Tenderness to Palpation of Joints or Extremities Neurological: Neuro grossly intact Psych/Mental Status: Normal Affect, Appropriate Vital Signs Temp Pulse Resp BP Pulse Ox 97.8 F 98 24 H 121/53 H 96 11/02/17 02:57 11/02/17 05:00 11/02/17 05:00 11/02/17 05:00 11/02/17 05:00 Oxygen Flow Rate (L/min) 4 Oxygen Delivery Method Nasal Cannula Weight: 162 lb 7.691 oz Body Mass Index (BMI) 22.6 Laboratory Tests Past 24 Hrs 11/02/17 11/02/17 11/02/17 03:00 03:00 03:00 WBC 13.3 H RBC 4.52 L Hgb 14.0 Hct 41.2 MCV 91.2 MCH 31.0 MCHC 34.0 RDW 14.2 RDW Differential 46.7 H Plt Count 216 MPV 10.3 Immature Gran % (Auto) 0.200 Neut % (Auto) 52.4 Lymph % (Auto) 28.8 [place] % (Auto) 10.4 H Eos % (Auto) 7.4 H Baso % (Auto) 0.8 Absolute Neuts (auto) 7.0 Absolute Lymphs (auto) 3.83 Total Counted Not Reportable D-Dimer Quant (PE/DVT) 0.62 H* Specimen Type Sample Site pH Bicarbonate Actual POC Total CO2 Base Excess O2 Saturation ABG pCO2 ABG pO2 Norman Test O2 Delivery Device Liter Flow Blood Gas Notified Whom Blood Gas Notified Time Sodium 145 Potassium 3.5 Chloride 107 Carbon Dioxide 29.0 Anion Gap 9 BUN 15 Creatinine 1.18 Estim Creat Clear Calc 91.08 Est GFR (MDRD) Af Amer 90 Est GFR (MDRD) Non-Af 75 BUN/Creatinine Ratio 12.7 Glucose 97 Calcium 8.5 Troponin I 0.025 B-Natriuretic Peptide 11/02/17 11/02/17 05:04 05:18 WBC RBC Hgb Hct MCV MCH MCHC RDW RDW Differential Plt Count MPV Immature Gran % (Auto) Neut % (Auto) Lymph % (Auto) [place] % (Auto) Eos % (Auto) Baso % (Auto) Absolute Neuts (auto) Absolute Lymphs (auto) Total Counted D-Dimer Quant (PE/DVT) Specimen Type ART Sample Site L Radial pH 7.40 Bicarbonate Actual 23.8 POC Total CO2 25 Base Excess -1 O2 Saturation 89 L ABG pCO2 38.3 ABG pO2 56 L Norman Test POS O2 Delivery Device Nasal Can Liter Flow 3.0 Blood Gas Notified Whom ED MD Blood Gas Notified Time 515 Sodium Potassium Chloride Carbon Dioxide Anion Gap BUN Creatinine Estim Creat Clear Calc Est GFR (MDRD) Af Amer Est GFR (MDRD) Non-Af BUN/Creatinine Ratio Glucose Calcium Troponin I B-Natriuretic Peptide 423.6 H Assessment/Plan All Active Problems (Last Reviewed 08/04/17 @ 11:09 by Anatoly Helms MD) Chest pain (Acute) Near syncope (Acute) Dyspnea on exertion (Acute) Intermittent palpitations (Acute) Chronic Problems (Last Reviewed 08/04/17 @ 11:09 by Anatoly Helms MD) Moderate aortic stenosis (Chronic) Non-rheumatic mitral regurgitation (Chronic) Non-rheumatic aortic regurgitation (Chronic) Left ventricular hypertrophy (Chronic) H/O aortic valve replacement (Chronic 07/18/02) 23 mm aortic homograft @ [facility] Plan - admit to ICU - consult Dr Farrell - cycle cardiac markers. - Repeat echocardiogram - continue BIPAP - cbc, bmp,BNTP in am - continue routine home medications - LMWH for DVT prophylaxis Code Visit Inpatient E&M: 70413 Init Hosp L3
--- NOTE | 2017-11-02 06:50 | ECHOD_ITS ---
Reason For Study: Murmur Procedure This was a 2D Doppler, Color Flow transthoracic echocardiogram. The exam was of adequate technical quality. Exam performed portable in ICU/CCU. Left Ventricle Mildly dilated left ventricle. Left ventricular systolic function is normal. The estimated ejection fraction is 65 %. There is evidence of diastolic dysfunction. No regional wall motion abnormalities noted. Right Ventricle Normal RV size. Normal systolic function. Atria The left atrium is mildly enlarged. Normal right atrium. No doppler evidence for ASD. Mitral Valve There is no mitral annular calcification. Mild diffuse mitral valve thickening. Mild focal mitral valve calcification of the posterior leaflet. Poor coaptation of the aortic valve. Moderately severe (3+) mitral valve insufficiency. Tricuspid Valve Normal tricuspid valve. Trivial tricuspid valve insufficiency. Aortic Valve Stable appearing bioprosthetic aortic valve apparatus. Severe transvalvular insufficiency of the aortic valve. Pulmonic Valve The pulmonic valve is not well visualized. Great Vessels Normal sized aortic root. Pericardium/Pleural No pericardial effusion. MMode/2D Measurements & Calculations LVIDd: 5.7 cm IVSd: 1.1 cm LVOT diam: 2.0 cm LVIDs: 3.6 cm LVPWd: 1.2 cm LVOT area: 3.2 cm2 RVDd: 3.4 cm FS: 36.5 % Ao root diam: 2.5 cm LAV(MOD-bp): 97.4 ml LA A4 area: 23.8 cm2 LA dimension: 4.8 cm LAV(MOD-bp) Indexed: 50.5 ml/m2 LAV(MOD-sp2): 110.2 ml LAV(MOD-sp4): 84.7 ml RA A4 area: 11.0 cm2 Doppler Measurements & Calculations MV E max audi: 158.4 cm/sec Lat Peak E' Audi: 7.4 cm/sec Med Peak E' Audi: 11.4 cm/sec MV A max audi: 93.9 cm/sec E/E' lat: 21.5 E/E' med: 13.8 MV E/A: 1.7 MV V2 max: 183.8 cm/sec MV P1/2t max audi: 170.8 cm/sec Ao V2 max: 276.2 cm/sec MV max P.5 mmHg MV P1/2t: 52.5 msec Ao max P.5 mmHg MV V2 mean: 137.7 cm/sec MV dec slope: 953.7 cm/sec2 Ao V2 mean: 192.7 cm/sec MV mean P.2 mmHg MVA(P1/2t): 4.2 cm2 Ao mean P.6 mmHg MV V2 VTI: 40.7 cm Ao V2 VTI: 50.2 cm MVA(VTI): 2.3 cm2 JENNIFER(I,D): 1.9 cm2 JENNIFER(V,D): 1.9 cm2 AI max audi: 367.9 cm/sec LV V1 max: 163.3 cm/sec SV(LVOT): 95.2 ml AI max P.1 mmHg LV V1 max P.7 mmHg AI dec slope: 825.9 cm/sec2 LV V1 mean P.4 mmHg AI P1/2t: 130.5 msec LV V1 mean: 109.4 cm/sec LV V1 VTI: 30.2 cm PA V2 max: 74.6 cm/sec Interpretation Summary Mildly dilated left ventricle. Left ventricular systolic function is normal. The estimated ejection fraction is 65 %. The left atrium is mildly enlarged. Mild diffuse mitral valve thickening. Mild focal mitral valve calcification of the posterior leaflet. Poor coaptation of the aortic valve. Moderately severe (3+) mitral valve insufficiency. Trivial tricuspid valve insufficiency. Stable appearing bioprosthetic aortic valve apparatus. Severe transvalvular insufficiency of the aortic valve. There is evidence of diastolic dysfunction. Comment: a) 2D echocardiographic images demonstrate a mobile echodensity (approximately 0.5 cm x 0.5 cm) associated with the aortic valve apparatus with a differential diagnosis including vegetation. b) Color flow doppler cannot exclude perivalvular aortic insufficiency c) 2D echocardiographic images demonstrate a small vague mobile echodensity associated with the submitral valve apparatus (short axis view) of uncertain etiology with a differential diagnosis including vegetation. d) Consider DARIO for further evaluation if clinically indicated. Ordering Physician: Enrique Magallanes Referring Physician: Anatoly Helms Performed By: Montserrat Moeller RDCS
[2017-11-02 08:05] LABS: BNP,B-Type NATRIURETIC PEPTIDE 328.2 pg/mL (0-100)
[2017-11-02] MEDS: Furosemide 100 MG/10 ML Vial 60 MG IV (10:53)
[2017-11-02] MEDS: 0.9% NaCl Peripheral Flush Adult/Peds IV ×5 (10:54→18:35)
--- NOTE | 2017-11-02 10:57 | CASEMGMT ---
Insurance review for [facility] facilities. Per physician, pt to transfer to [facility] today. Call to [place], was not able to connect with a guest experience representative. Per [facility] website, [facility] is listed as an [facility] facility. Valentine MIJARESN RN ACM
--- NOTE | 2017-11-02 11:14 | PCM.CONS.C ---
Problem List (1) CHF (congestive heart failure) Status: Acute Qualifiers: Heart failure type: diastolic (2) H/O aortic valve replacement Status: Chronic Comment: 23 mm aortic homograft @ [facility] (3) Non-rheumatic aortic regurgitation Status: Chronic (4) Non-rheumatic mitral regurgitation Status: Chronic (5) Infectious endocarditis Status: Acute Reason for Consult Date of Consultation: 11/02/17 History of Present Illness: The patient is a 37 year old male past medical history which has included underlying aortic valve disease status post aortic valve replacement with a #23 mm homograft-remote at [facility]-who presents for evaluation of chest discomfort and shortness of breath/dyspnea. He states recently he has noted chest discomfort somewhat more so when he is lying down than sitting up. He has noted progression of the discomfort and association of shortness of breath/dyspnea. He denies any recent illness or documented febrile events. He denies any associated nausea, emesis, or diaphoresis. He denies any near-syncope or syncope. There is been no obvious upper or lower extremity digits lesions and/or lower extremity edema. He presented to the [facility] emergency department based upon his ongoing concerns. He underwent noninvasive evaluation which did include concerns of possible thromboembolic disease. He had a chest CT scan performed. Following his chest CT scan he was noted to have progressive shortness of breath and dyspnea and evidence of hemoptysis and on repeat chest x-ray evidence of CHF/pulmonary edema. He was subsequently placed in the ICU for further evaluation and care. In the interim he was treated with IV diuretics with furosemide 20 mg IV push ?1. He did have increased urinary output. He has had a ECG performed. He was noted to be in sinus rhythm/sinus tachycardia with the appearance of left atrial enlargement, left ventricular hypertrophy, and nonspecific ST segment abnormality. He also had a transthoracic echocardiogram performed. The results are as noted below. [] Interpretation Summary Mildly dilated left ventricle. Left ventricular systolic function is normal. The estimated ejection fraction is 65 %. The left atrium is mildly enlarged. Mild diffuse mitral valve thickening. Mild focal mitral valve calcification of the posterior leaflet. Poor coaptation of the aortic valve. Moderately severe (3+) mitral valve insufficiency. Trivial tricuspid valve insufficiency. Stable appearing bioprosthetic aortic valve apparatus. Severe transvalvular insufficiency of the aortic valve. There is evidence of diastolic dysfunction. Comment: a) 2D echocardiographic images demonstrate a mobile echodensity (approximately 0.5 cm x 0.5 cm) associated with the aortic valve apparatus with a differential diagnosis including vegetation. b) Color flow doppler cannot exclude perivalvular aortic insufficiency c) 2D echocardiographic images demonstrate a small vague mobile echodensity associated with the submitral valve apparatus (short axis view) of uncertain etiology with a differential diagnosis including vegetation. d) Consider DARIO for further evaluation if clinically indicated. He states that he has had one outpatient cardiovascular visit recently with the [facility] establish local cardiovascular care. However he states he also has an upcoming appointment at the [facility] in November this year to reestablish tertiary care for his underlying cardiovascular disease process. He does admit that he has smoked marijuana in the past. He states he has not been using any other type of illicit drugs in any way shape or form. Past Medical History Allergies/Adverse Reactions: Allergies No Known Allergies Allergy (Verified 11/02/17 06:57) Home Medications: Ambulatory Orders Medication Instructions Recorded NK [NK] 11/02/17 Past Medical History (Chronic Problems): Chronic Problems (Last Reviewed 08/04/17 @ 11:09 by Anatoly Helms MD) Moderate aortic stenosis (Chronic) Non-rheumatic mitral regurgitation (Chronic) Non-rheumatic aortic regurgitation (Chronic) Left ventricular hypertrophy (Chronic) H/O aortic valve replacement (Chronic 07/18/02) 23 mm aortic homograft @ [facility] - *Family History Maternal History Items: No pertinent history Smoking Status: Current every day smoker Review of Systems - Review of Systems General: Denies: Fever, Night Sweats, Fatigue Cardiovascular: Reports: Chest Discomfort, Chest Discomfort at Rest, Shortness of Breath, Shortness of Breath at Rest. Denies: Orthopnea, PND, Peripheral Edema, Palpitations, Lightheadedness, Dizziness, Near Syncope, Syncope Respiratory: Reports: Hemoptysis, Shortness of Breath. Denies: Cough, Sputum Production Gastrointestinal: Denies: Hematemesis, Hematochezia, Melena Genitourinary: Denies: Dysuria, Hematuria Skin: Denies: Rash Subjectve: This is a thin 37-year-old white male with multiple body tattoos and body piercings who is in the ICU at this time with continued shortness of breath and evidence of hemoptysis. Objective: Vital Signs Temp Pulse Resp BP Pulse Ox 99.4 F H 91 25 H 120/46 L 96 11/02/17 08:00 11/02/17 09:00 11/02/17 09:00 11/02/17 09:00 11/02/17 09:00 Oxygen Flow Rate (L/min) 3 Oxygen Delivery Method Nasal Cannula Weight: 155 lb 10.342 oz Body Mass Index (BMI) 21.7 General: Awake, Alert, Oriented x 3, Cooperative, No Acute Distress HEENT: Atraumatic, Normocephalic, PERRL, EOMI, Sclera Non Icteric Neck: Supple, Good ROM, No JVD Lungs: Diminished Right Base Cardiovascular: Regular Rhythm, Normal S1, Normal S2 Murmur Murmur: Grade 3/6, Mid Systolic, LLSB, LVOT, Sternal Notch, - - Grade 3/6 diastolic murmur at the lower left sternal border; grade 3/6 holosystolic murmur at the apex/axilla Vascular: Radiation of Murmur to Carotid Arteries Abdomen: Bowel Sounds Present, Soft, Non Tender Extremities: No Cyanosis, No Clubbing, No edema, - - No obvious upper or lower extremity digits splinter hemorrhages; Osler nodes; or Janeway lesions initiated at this time Lymphatic: No Lymph Node Enlargement Neurological: No Focal Motor or Sensory Deficit, CN II-XII Intact Psych/Mental Status: Appropriate, Normal Affect 11/02/17 08:00: Troponin I 0.092 H Rhythm: Sinus rhythm/sinus tachycardia EKG: As noted above ECHO: As noted above Stress Test: Stress echocardiogram: [facility]: 09/01/2010: Per the conclusion a normal near maximal treadmill stress ECG considered clinically negative for ischemia with the exercise stress echo being considered for negative for ischemia at 90% predicted maximal heart rate CXR: Preliminary evaluation: Post chest CT scan: Increased ulnar vascularity/pulmonary edema: Please see official report Chest CT Scan: Per radiology: Considered negative for great vessel disease: Please see official report Assessment/Plan . Acute CHF: Diastolic/valvular related The patient appears to have evidence of acute CHF. This appeared to have worsened status post his chest CT scan with IV contrast. He was noted to have progressive shortness of breath/dyspnea and the development of hemoptysis. At the present time there are concerns not only regarding volume overload, but his underlying valvular heart disease as noted on his echocardiographic studies suggesting severe AI and moderately severe MR contributing to a dilated LV (with as of yet overall preserved LV systolic function) all contribute into his CHF/pulmonary edema. The present time he is in the ICU. He is being monitored. He is receiving additional IV diuretics in the hopes of improving his volume status and subsequently his respiratory status. 2. Valvular heart disease: Status post aortic valve replacement-bioprosthetic #23 homograft; AI; MR The patient does have a history of underlying valvular heart disease. The etiology of his aortic valve disease is unknown at this time. However he is status post bioprosthetic aortic valve replacement with a #23 homograft at the [facility]. At the present time he also was noted to have what appears to be mitral valve disease with moderately severe MR. Our concerns based upon his echocardiographic studies of mobile echodensities associated with the aortic valve potentially compatible with infectious endocarditis although other etiologies cannot be excluded. There are also concerns based upon his echocardiographic studies of vague mobile echodensities associated with the mitral valve apparatus, predominantly in the short axis view, again raising concerns of possible infectious endocarditis although other etiologies cannot be excluded. At the present time the patient is being monitored. He is being treated for his concerns of acute CHF. Based upon concerns of infectious endocarditis he will initiate antibiotic therapy as well. He should be considered for further evaluation, if deemed clinically appropriate, with transesophageal echocardiogram. However this may have to occur once he is stabilized from a cardiopulmonary standpoint. He should also be considered for transfer to a tertiary care center, such as a [facility] for he had his original valve surgery performed, for combined evaluation with both cardiology, CT surgery, and infectious disease for the need for possible repeat surgery and repeat valvular replacement. 3. Infectious endocarditis Based upon the patient's clinical scenario there are concerns of underlying infectious endocarditis. The patient has been noted to be mildly febrile at [facility]. He does have underlying cardiovascular issues concerning for infectious endocarditis. He does not have peripheral stigmata at this time as best as can be noted. However, based upon his ongoing clinical issues he is being further evaluated. This includes laboratory studies, blood cultures, etc. Again he may need further evaluation with transesophageal echocardiogram once stable from a cardiopulmonary standpoint. He should also be considered for broad-spectrum antibiotic therapy. General internal medicine is discussing this with infectious disease with respect to appropriate antibiotic coverage at this time. He should also be considered for transfer to a tertiary care center based upon his ongoing issues as described above for the need for combined evaluation which may need to repeat CT surgery of not only his aortic valve but possibly has mitral valve. Comment: The above has been discussed with the patient, Dr. Jaeger of the pulmonology/critical care medicine staff, and Dr. Leal of the general internal medicine staff. He is discussing the case with infectious disease and arranging transfer of the patient back to the [facility] for further comprehensive evaluation and care. This note was generated with [employer] dictation software. It may contain incorrect words, spelling, and punctuation that were not noted in checking the note before signing.
--- NOTE | 2017-11-02 11:18 | CON.PCM_ITS ---
Problem List (1) CHF (congestive heart failure) Status: Acute Qualifiers: Heart failure type: diastolic (2) H/O aortic valve replacement Status: Chronic Comment: 23 mm aortic homograft @ [facility] (3) Non-rheumatic aortic regurgitation Status: Chronic (4) Non-rheumatic mitral regurgitation Status: Chronic (5) Infectious endocarditis Status: Acute Reason for Consult Date of Consultation: 11/02/17 History of Present Illness: The patient is a 37 year old male past medical history which has included underlying aortic valve disease status post aortic valve replacement with a #23 mm homograft-remote at [facility]-who presents for evaluation of chest discomfort and shortness of breath/dyspnea. He states recently he has noted chest discomfort somewhat more so when he is lying down than sitting up. He has noted progression of the discomfort and association of shortness of breath/dyspnea. He denies any recent illness or documented febrile events. He denies any associated nausea, emesis, or diaphoresis. He denies any near-syncope or syncope. There is been no obvious upper or lower extremity digits lesions and/ or lower extremity edema. He presented to the [facility] emergency department based upon his ongoing concerns. He underwent noninvasive evaluation which did include concerns of possible thromboembolic disease. He had a chest CT scan performed. Following his chest CT scan he was noted to have progressive shortness of breath and dyspnea and evidence of hemoptysis and on repeat chest x-ray evidence of CHF/pulmonary edema. He was subsequently placed in the ICU for further evaluation and care. In the interim he was treated with IV diuretics with furosemide 20 mg IV push ?1. He did have increased urinary output. He has had a ECG performed. He was noted to be in sinus rhythm/sinus tachycardia with the appearance of left atrial enlargement, left ventricular hypertrophy, and nonspecific ST segment abnormality. He also had a transthoracic echocardiogram performed. The results are as noted below. [] Interpretation Summary Mildly dilated left ventricle. Left ventricular systolic function is normal. The estimated ejection fraction is 65 %. The left atrium is mildly enlarged. Mild diffuse mitral valve thickening. Mild focal mitral valve calcification of the posterior leaflet. Poor coaptation of the aortic valve. Moderately severe (3+) mitral valve insufficiency. Trivial tricuspid valve insufficiency. Stable appearing bioprosthetic aortic valve apparatus. Severe transvalvular insufficiency of the aortic valve. There is evidence of diastolic dysfunction. Comment: a) 2D echocardiographic images demonstrate a mobile echodensity (approximately 0.5 cm x 0.5 cm) associated with the aortic valve apparatus with a differential diagnosis including vegetation. b) Color flow doppler cannot exclude perivalvular aortic insufficiency c) 2D echocardiographic images demonstrate a small vague mobile echodensity associated with the submitral valve apparatus (short axis view) of uncertain etiology with a differential diagnosis including vegetation. d) Consider DARIO for further evaluation if clinically indicated. He states that he has had one outpatient cardiovascular visit recently with the [facility] establish local cardiovascular care. However he states he also has an upcoming appointment at the [facility] in November this year to reestablish tertiary care for his underlying cardiovascular disease process. He does admit that he has smoked marijuana in the past. He states he has not been using any other type of illicit drugs in any way shape or form. Past Medical History Allergies/Adverse Reactions: Allergies No Known Allergies Allergy (Verified 11/02/17 06:57) Home Medications: Ambulatory Orders Medication Instructions Recorded NK [NK] 11/02/17 Past Medical History (Chronic Problems): Chronic Problems (Last Reviewed 08/04/17 @ 11:09 by Anatoly Helms MD) Moderate aortic stenosis (Chronic) Non-rheumatic mitral regurgitation (Chronic) Non-rheumatic aortic regurgitation (Chronic) Left ventricular hypertrophy (Chronic) H/O aortic valve replacement (Chronic 07/18/02) 23 mm aortic homograft @ [facility] - *Family History Maternal History Items: No pertinent history Smoking Status: Current every day smoker Review of Systems - Review of Systems General: Denies: Fever, Night Sweats, Fatigue Cardiovascular: Reports: Chest Discomfort, Chest Discomfort at Rest, Shortness of Breath, Shortness of Breath at Rest. Denies: Orthopnea, PND, Peripheral Edema, Palpitations, Lightheadedness, Dizziness, Near Syncope, Syncope Respiratory: Reports: Hemoptysis, Shortness of Breath. Denies: Cough, Sputum Production Gastrointestinal: Denies: Hematemesis, Hematochezia, Melena Genitourinary: Denies: Dysuria, Hematuria Skin: Denies: Rash Subjectve: This is a thin 37-year-old white male with multiple body tattoos and body piercings who is in the ICU at this time with continued shortness of breath and evidence of hemoptysis. Objective: Vital Signs Temp Pulse Resp BP Pulse Ox 99.4 F H 91 25 H 120/46 L 96 11/02/17 08:00 11/02/17 09:00 11/02/17 09:00 11/02/17 09:00 11/02/17 09:00 Oxygen Flow Rate (L/min) 3 Oxygen Delivery Method Nasal Cannula Weight: 155 lb 10.342 oz Body Mass Index (BMI) 21.7 General: Awake, Alert, Oriented x 3, Cooperative, No Acute Distress HEENT: Atraumatic, Normocephalic, PERRL, EOMI, Sclera Non Icteric Neck: Supple, Good ROM, No JVD Lungs: Diminished Right Base Cardiovascular: Regular Rhythm, Normal S1, Normal S2 Murmur Murmur: Grade 3/6, Mid Systolic, LLSB, LVOT, Sternal Notch, - - Grade 3/6 diastolic murmur at the lower left sternal border; grade 3/6 holosystolic murmur at the apex/axilla Vascular: Radiation of Murmur to Carotid Arteries Abdomen: Bowel Sounds Present, Soft, Non Tender Extremities: No Cyanosis, No Clubbing, No edema, - - No obvious upper or lower extremity digits splinter hemorrhages; Osler nodes; or Janeway lesions initiated at this time Lymphatic: No Lymph Node Enlargement Neurological: No Focal Motor or Sensory Deficit, CN II-XII Intact Psych/Mental Status: Appropriate, Normal Affect 11/02/17 08:00: Troponin I 0.092 H Rhythm: Sinus rhythm/sinus tachycardia EKG: As noted above ECHO: As noted above Stress Test: Stress echocardiogram: [facility]: 09/01/2010: Per the conclusion a normal near maximal treadmill stress ECG considered clinically negative for ischemia with the exercise stress echo being considered for negative for ischemia at 90% predicted maximal heart rate CXR: Preliminary evaluation: Post chest CT scan: Increased ulnar vascularity/ pulmonary edema: Please see official report Chest CT Scan: Per radiology: Considered negative for great vessel disease: Please see official report Assessment/Plan . Acute CHF: Diastolic/valvular related The patient appears to have evidence of acute CHF. This appeared to have worsened status post his chest CT scan with IV contrast. He was noted to have progressive shortness of breath/dyspnea and the development of hemoptysis. At the present time there are concerns not only regarding volume overload, but his underlying valvular heart disease as noted on his echocardiographic studies suggesting severe AI and moderately severe MR contributing to a dilated LV ( with as of yet overall preserved LV systolic function) all contribute into his CHF/pulmonary edema. The present time he is in the ICU. He is being monitored. He is receiving additional IV diuretics in the hopes of improving his volume status and subsequently his respiratory status. 2. Valvular heart disease: Status post aortic valve replacement-bioprosthetic # 23 homograft; AI; MR The patient does have a history of underlying valvular heart disease. The etiology of his aortic valve disease is unknown at this time. However he is status post bioprosthetic aortic valve replacement with a #23 homograft at the [facility]. At the present time he also was noted to have what appears to be mitral valve disease with moderately severe MR. Our concerns based upon his echocardiographic studies of mobile echodensities associated with the aortic valve potentially compatible with infectious endocarditis although other etiologies cannot be excluded. There are also concerns based upon his echocardiographic studies of vague mobile echodensities associated with the mitral valve apparatus, predominantly in the short axis view, again raising concerns of possible infectious endocarditis although other etiologies cannot be excluded. At the present time the patient is being monitored. He is being treated for his concerns of acute CHF. Based upon concerns of infectious endocarditis he will initiate antibiotic therapy as well. He should be considered for further evaluation, if deemed clinically appropriate , with transesophageal echocardiogram. However this may have to occur once he is stabilized from a cardiopulmonary standpoint. He should also be considered for transfer to a tertiary care center, such as a [facility] for he had his original valve surgery performed, for combined evaluation with both cardiology, CT surgery, and infectious disease for the need for possible repeat surgery and repeat valvular replacement. 3. Infectious endocarditis Based upon the patient's clinical scenario there are concerns of underlying infectious endocarditis. The patient has been noted to be mildly febrile at [facility]. He does have underlying cardiovascular issues concerning for infectious endocarditis. He does not have peripheral stigmata at this time as best as can be noted. However, based upon his ongoing clinical issues he is being further evaluated. This includes laboratory studies, blood cultures, etc. Again he may need further evaluation with transesophageal echocardiogram once stable from a cardiopulmonary standpoint. He should also be considered for broad-spectrum antibiotic therapy. General internal medicine is discussing this with infectious disease with respect to appropriate antibiotic coverage at this time. He should also be considered for transfer to a tertiary care center based upon his ongoing issues as described above for the need for combined evaluation which may need to repeat CT surgery of not only his aortic valve but possibly has mitral valve. Comment: The above has been discussed with the patient, Dr. Jaeger of the pulmonology/critical care medicine staff, and Dr. Leal of the general internal medicine staff. He is discussing the case with infectious disease and arranging transfer of the patient back to the [facility] for further comprehensive evaluation and care. This note was generated with [email or web address] dictation software. It may contain incorrect words, spelling, and punctuation that were not noted in checking the note before signing.
[2017-11-02 11:41] LABS: M R Staph aureus DNA By PCR Negative (Negative)
[2017-11-02 11:42] LABS: Probe Check PASS; Specimen Processing Control PASS
--- NOTE | 2017-11-02 13:25 | PCM.RX.CS ---
Consult Pharmacy has been consulted to manage selected antiobiotic: Vancomycin Type of Consult: New start Suspected Infection: Endocarditis Prior Doses of Antibiotics Received/Current Regimen: Medications Vancomycin HCl 1,750 mg/ (Sodium Chloride) 535 mls @ 250 mls/hr IV X1 ONE Stop: 11/02/17 14:08 Last Admin: 11/02/17 13:19 Dose: 250 mls/hr Labs: Sodium 145 mmol/L (136-145) 11/02/17 03:00 Potassium 3.5 mmol/L (3.5-5.1) 11/02/17 03:00 Chloride 107 mmol/L (98-107) 11/02/17 03:00 Carbon Dioxide 29.0 mmol/L (21.0-32.0) 11/02/17 03:00 Anion Gap 9 (5-15) 11/02/17 03:00 BUN 15 mg/dL (7-18) 11/02/17 03:00 Creatinine 1.18 mg/dL (0.70-1.30) 11/02/17 03:00 Est GFR (MDRD) Af Amer 90 mL/min (>60) 11/02/17 03:00 Est GFR (MDRD) Non-Af 75 mL/min (>60) 11/02/17 03:00 BUN/Creatinine Ratio 12.7 RATIO (10-20) 11/02/17 03:00 Glucose 97 mg/dL (74-106) 11/02/17 03:00 Weight used for dosin kg Estimated Creatinine Clearance: 88 ml/min Goal Trough: 15-20 mcg/mL Pharmacy Plan for Drug Dosing: Recommend 1750mg vancomycin IV load x1, continue 1250mg IV q12h per nomogram. Patient to be transferred but if stays, may need dose increased due to expected improvement in crcl with next SCr check. Trough prior to 4th dose. Pharmacy Service will continue to monitor and adjust dosing as required. Follow-Up Labs: Trough Vancomycin - 11/03/17 @ 2200
[2017-11-02] MEDS: Piperacil/Tazobactam 3.375 GM/50 ML ML IV (16:02)
--- NOTE | 2017-11-02 16:05 | PCM.HP.ID ---
Problem List (1) Infectious endocarditis Status: Acute Reason for Consult: endocarditis Consulted by: Dr. Bangura History of Present Illness: The patient is a 37 year old M with aortic valve replacement 2002 at [facility] who presented to ED with sudden onset of severe chest pressure and SOB, worse with lying flat. No fever, chills, or night sweats. No recent skin infections. No joint or back pain. Had bronchitis about 3 weeks ago. Had dental cleaning about 1.5 months ago and dental infection a little while before that. Reports he takes prophylaxis prior to dental procedures. Denies any h/o IVDU. No h/o endocarditis. Worked [employer] at [employer] a few days ago, but no contact with animals. Came to ED, admitted to icu, echo showed concern for veg. Bcx x2 sent, then started on iv vanc/zosyn. Full ROS performed and neg except as noted above. - Medical History Past Medical History (Chronic Problems): Chronic Problems (Last Reviewed 08/04/17 @ 11:09 by Anatoly Helms MD) Moderate aortic stenosis (Chronic) Non-rheumatic mitral regurgitation (Chronic) Non-rheumatic aortic regurgitation (Chronic) Left ventricular hypertrophy (Chronic) H/O aortic valve replacement (Chronic 07/18/02) 23 mm aortic homograft @ [facility] Allergies/Adverse Reactions: Allergies No Known Allergies Allergy (Verified 11/02/17 06:57) Home Medications: Ambulatory Orders Medication Instructions Recorded NK [NK] 11/02/17 - Social History Tobacco Use: cigarettes Alcohol Use: occasionally Drug Use: marijuana Vital Signs Temp Pulse Resp BP Pulse Ox 98.8 F 92 21 H 115/50 L 95 11/02/17 12:00 11/02/17 14:00 11/02/17 14:00 11/02/17 14:00 11/02/17 14:00 Oxygen Flow Rate (L/min) 3 Oxygen Delivery Method Nasal Cannula Weight: 70.6 kg Body Mass Index (BMI) 21.7 Laboratory Tests Past 24 Hrs 11/02/17 11/02/17 11/02/17 06:45 08:00 11:00 Troponin I 0.092 H 0.073 H MRSA (PCR) Negative 11/02/17 15:35 Troponin I Pending MRSA (PCR) - Other Studies Radiology: [] reviewed Other Studies: [] Route of nutrition/ use of supplements: [] Nutritional Intake: [] IV Site: [] Harris Catheter: [] - Physical Exam General: Alert, Oriented x3, Cooperative, No apparent distress HEENT: Atraumatic, PERRLA, EOMI, Normocephalic, - - no sign of dental infection Neck: Supple, No Nodes Lungs: Clear to auscultation, Normal air movement Cardiovascular: Regular Rhythm, Murmur - loud systolic and diastolic murmur, Tachycardic Abdomen: Soft, Non Tender, Non-Distended Extremities: No edema Skin: No rashes, - - Small splinter hemorrhage on R 5th finger, ? tiny splinter hemorrhage on L thumb. 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 Bcx x2 sent prior to Vanc/zosyn started. Small splinter hemorrhage on R 5th finger and ? L thumb. Had dental infection in the past few months, no other clear exposure history. Reports compliance with dental abx prophylaxis. Denies IVDU. Will check utox (he did get morphine in ED). Thank you, will follow, d/w primary team and nursing.
--- NOTE | 2017-11-02 16:09 | CON.PCM_ITS ---
Problem List (1) Infectious endocarditis Status: Acute Reason for Consult: endocarditis Consulted by: Dr. Bangura History of Present Illness: The patient is a 37 year old M with aortic valve replacement 2002 at [facility] who presented to ED with sudden onset of severe chest pressure and SOB, worse with lying flat. No fever, chills, or night sweats. No recent skin infections. No joint or back pain. Had bronchitis about 3 weeks ago. Had dental cleaning about 1.5 months ago and dental infection a little while before that. Reports he takes prophylaxis prior to dental procedures. Denies any h/o IVDU. No h/o endocarditis. Worked [employer] at [employer] a few days ago, but no contact with animals. Came to ED, admitted to icu, echo showed concern for veg. Bcx x2 sent, then started on iv vanc/zosyn. Full ROS performed and neg except as noted above. - Medical History Past Medical History (Chronic Problems): Chronic Problems (Last Reviewed 08/04/17 @ 11:09 by Anatoly Helms MD) Moderate aortic stenosis (Chronic) Non-rheumatic mitral regurgitation (Chronic) Non-rheumatic aortic regurgitation (Chronic) Left ventricular hypertrophy (Chronic) H/O aortic valve replacement (Chronic 07/18/02) 23 mm aortic homograft @ [facility] Allergies/Adverse Reactions: Allergies No Known Allergies Allergy (Verified 11/02/17 06:57) Home Medications: Ambulatory Orders Medication Instructions Recorded NK [NK] 11/02/17 - Social History Tobacco Use: cigarettes Alcohol Use: occasionally Drug Use: marijuana Vital Signs Temp Pulse Resp BP Pulse Ox 98.8 F 92 21 H 115/50 L 95 11/02/17 12:00 11/02/17 14:00 11/02/17 14:00 11/02/17 14:00 11/02/17 14:00 Oxygen Flow Rate (L/min) 3 Oxygen Delivery Method Nasal Cannula Weight: 70.6 kg Body Mass Index (BMI) 21.7 Laboratory Tests Past 24 Hrs 11/02/17 11/02/17 11/02/17 06:45 08:00 11:00 Troponin I 0.092 H 0.073 H MRSA (PCR) Negative 11/02/17 15:35 Troponin I Pending MRSA (PCR) - Other Studies Radiology: [] reviewed Other Studies: [] Route of nutrition/ use of supplements: [] Nutritional Intake: [] IV Site: [] Harris Catheter: [] - Physical Exam General: Alert, Oriented x3, Cooperative, No apparent distress HEENT: Atraumatic, PERRLA, EOMI, Normocephalic, - - no sign of dental infection Neck: Supple, No Nodes Lungs: Clear to auscultation, Normal air movement Cardiovascular: Regular Rhythm, Murmur - loud systolic and diastolic murmur, Tachycardic Abdomen: Soft, Non Tender, Non-Distended Extremities: No edema Skin: No rashes, - - Small splinter hemorrhage on R 5th finger, ? tiny splinter hemorrhage on L thumb. 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 Bcx x2 sent prior to Vanc/zosyn started. Small splinter hemorrhage on R 5th finger and ? L thumb. Had dental infection in the past few months, no other clear exposure history. Reports compliance with dental abx prophylaxis. Denies IVDU. Will check utox (he did get morphine in ED). Thank you, will follow, d/w primary team and nursing.
--- NOTE | 2017-11-02 17:08 | PCM.PN.CARD ---
Subjectve: The patient has been reassessed. He has complained of progressive chest discomfort more so when lying supine and better when sitting up. He continues with his pink frothy sputum . He has been reexamined. In addition to his aforementioned cardiac murmurs it appears he now has auscultatory findings compatible with a pericardial friction rub. He continues to have evidence of bibasilar rales. His ECG was repeated. He does have T-wave changes/inversion most notably in lead V2. Objective: Vital Signs Temp Pulse Resp BP Pulse Ox 98.8 F 92 28 H 113/43 L 96 11/02/17 12:00 11/02/17 16:20 11/02/17 16:20 11/02/17 16:00 11/02/17 16:20 Oxygen Flow Rate (L/min) 3 Oxygen Delivery Method Nasal Cannula Weight: 155 lb 10.342 oz Body Mass Index (BMI) 21.7 Intake and Output for Last 24 Hours 10/31/17 11/01/17 11/02/17 23:59 23:59 23:59 Intake Total 240 / 240 Output Total 1000 / 1000 Balance -760 / -760 General: Awake, Alert, Oriented x 3, Cooperative, Ill Appearing Neck: No JVD Lungs: Rales - Jesus Bases Cardiovascular: Regular Rhythm, Normal S1, Normal S2, Pericardial Friction Rub Murmur Murmur: Grade 3/6, Mid Systolic, LLSB, LVOT, Sternal Notch, - - Grade 3/6 diastolic murmur at the lower left sternal border; grade 3/6 holosystolic murmur at the apex/axilla Abdomen: Bowel Sounds Present, Soft, Non Tender Extremities: No edema 11/02/17 08:00: Troponin I 0.092 H 11/02/17 11:00: Troponin I 0.073 H 11/02/17 15:35: Troponin I 0.046 H Rhythm: Sinus rhythm/sinus tachycardia EKG: As noted above ECHO: Please see official report Medical Necessity - Tobacco Use Smoking Status: Current every day smoker Assessment/Plan . Acute CHF: Diastolic/valvular related The patient appears to have evidence of acute CHF. This appeared to have worsened status post his chest CT scan with IV contrast. He was noted to have progressive shortness of breath/dyspnea and the development of hemoptysis. At the present time there are concerns not only regarding volume overload, but his underlying valvular heart disease as noted on his echocardiographic studies suggesting severe AI and moderately severe MR contributing to a dilated LV (with as of yet overall preserved LV systolic function) all contribute into his CHF/pulmonary edema. The present time he is in the ICU. He is being monitored. He is receiving additional IV diuretics in the hopes of improving his volume status and subsequently his respiratory status. 2. Valvular heart disease: Status post aortic valve replacement-bioprosthetic #23 homograft; AI; MR The patient does have a history of underlying valvular heart disease. The etiology of his aortic valve disease is unknown at this time. However he is status post bioprosthetic aortic valve replacement with a #23 homograft at the [facility]. At the present time he also was noted to have what appears to be mitral valve disease with moderately severe MR. Our concerns based upon his echocardiographic studies of mobile echo densities associated with the aortic valve potentially compatible with infectious endocarditis although other etiologies cannot be excluded. There are also concerns based upon his echocardiographic studies of vague mobile echo densities associated with the mitral valve apparatus, predominantly in the short axis view, again raising concerns of possible infectious endocarditis although other etiologies cannot be excluded. At the present time the patient is being monitored. He is being treated for his concerns of acute CHF. Based upon concerns of infectious endocarditis he will initiate antibiotic therapy as well. He should be considered for further evaluation, if deemed clinically appropriate, with transesophageal echocardiogram. However this may have to occur once he is stabilized from a cardiopulmonary standpoint. He should also be considered for transfer to a tertiary care center, such as a [facility] for he had his original valve surgery performed, for combined evaluation with both cardiology, CT surgery, and infectious disease for the need for possible repeat surgery and repeat valvular replacement. 3. Infectious endocarditis Based upon the patient's clinical scenario there are concerns of underlying infectious endocarditis. The patient has been noted to be mildly febrile at [facility]. He does have underlying cardiovascular issues concerning for infectious endocarditis. He does not have peripheral stigmata at this time as best as can be noted. However, based upon his ongoing clinical issues he is being further evaluated. This includes laboratory studies, blood cultures, etc. Again he may need further evaluation with transesophageal echocardiogram once stable from a cardiopulmonary standpoint. He has been placed on IV antibiotic therapy. He should also be considered for transfer to a tertiary care center based upon his ongoing issues as described above for the need for combined evaluation which may need to repeat CT surgery of not only his aortic valve but possibly has mitral valve. 4. Pericarditis The patient has progressed with symptoms of chest discomfort, which he describes as positional, worse when lying supine and better when sitting/leaning forward, concerning for pericarditis. At the same time his auscultatory findings now demonstrate findings compatible with an underlying pericardial friction rub as well as his cardiac murmurs attributed to his aortic and mitral valve disease process. His ECG pattern also demonstrates a change which could be related to an underlying pericardial disease process as well. He will continue his evaluation for his concerns of his acute appearing CHF/volume overload and pulmonary edema superimposed upon his valvular heart disease and concerns of possible underlying infectious endocarditis. At the same time, based upon concerns of pericarditis he will also receive additional medical therapy with respect to anti-inflammatory therapy-nonsteroidal. Comment: The above was discussed with the patient and his family members present. He will continue evaluation care as noted above. Attempts are being made to advance his transfer to the [facility]-which has accepted him-for further comprehensive evaluation and care. This note was generated with [employer] dictation software. It may contain incorrect words, spelling, and punctuation that were not noted in checking the note before signing.
--- NOTE | 2017-11-02 17:15 | PN.CARD_ITS ---
Subjectve: The patient has been reassessed. He has complained of progressive chest discomfort more so when lying supine and better when sitting up. He continues with his pink frothy sputum . He has been reexamined. In addition to his aforementioned cardiac murmurs it appears he now has auscultatory findings compatible with a pericardial friction rub. He continues to have evidence of bibasilar rales. His ECG was repeated. He does have T-wave changes/inversion most notably in lead V2. Objective: Vital Signs Temp Pulse Resp BP Pulse Ox 98.8 F 92 28 H 113/43 L 96 11/02/17 12:00 11/02/17 16:20 11/02/17 16:20 11/02/17 16:00 11/02/17 16:20 Oxygen Flow Rate (L/min) 3 Oxygen Delivery Method Nasal Cannula Weight: 155 lb 10.342 oz Body Mass Index (BMI) 21.7 Intake and Output for Last 24 Hours 10/31/17 11/01/17 11/02/17 23:59 23:59 23:59 Intake Total 240 / 240 Output Total 1000 / 1000 Balance -760 / -760 General: Awake, Alert, Oriented x 3, Cooperative, Ill Appearing Neck: No JVD Lungs: Rales - Jesus Bases Cardiovascular: Regular Rhythm, Normal S1, Normal S2, Pericardial Friction Rub Murmur Murmur: Grade 3/6, Mid Systolic, LLSB, LVOT, Sternal Notch, - - Grade 3/6 diastolic murmur at the lower left sternal border; grade 3/6 holosystolic murmur at the apex/axilla Abdomen: Bowel Sounds Present, Soft, Non Tender Extremities: No edema 11/02/17 08:00: Troponin I 0.092 H 11/02/17 11:00: Troponin I 0.073 H 11/02/17 15:35: Troponin I 0.046 H Rhythm: Sinus rhythm/sinus tachycardia EKG: As noted above ECHO: Please see official report Medical Necessity - Tobacco Use Smoking Status: Current every day smoker Assessment/Plan . Acute CHF: Diastolic/valvular related The patient appears to have evidence of acute CHF. This appeared to have worsened status post his chest CT scan with IV contrast. He was noted to have progressive shortness of breath/dyspnea and the development of hemoptysis. At the present time there are concerns not only regarding volume overload, but his underlying valvular heart disease as noted on his echocardiographic studies suggesting severe AI and moderately severe MR contributing to a dilated LV ( with as of yet overall preserved LV systolic function) all contribute into his CHF/pulmonary edema. The present time he is in the ICU. He is being monitored. He is receiving additional IV diuretics in the hopes of improving his volume status and subsequently his respiratory status. 2. Valvular heart disease: Status post aortic valve replacement-bioprosthetic # 23 homograft; AI; MR The patient does have a history of underlying valvular heart disease. The etiology of his aortic valve disease is unknown at this time. However he is status post bioprosthetic aortic valve replacement with a #23 homograft at the [facility]. At the present time he also was noted to have what appears to be mitral valve disease with moderately severe MR. Our concerns based upon his echocardiographic studies of mobile echo densities associated with the aortic valve potentially compatible with infectious endocarditis although other etiologies cannot be excluded. There are also concerns based upon his echocardiographic studies of vague mobile echo densities associated with the mitral valve apparatus, predominantly in the short axis view, again raising concerns of possible infectious endocarditis although other etiologies cannot be excluded. At the present time the patient is being monitored. He is being treated for his concerns of acute CHF. Based upon concerns of infectious endocarditis he will initiate antibiotic therapy as well. He should be considered for further evaluation, if deemed clinically appropriate , with transesophageal echocardiogram. However this may have to occur once he is stabilized from a cardiopulmonary standpoint. He should also be considered for transfer to a tertiary care center, such as a [facility] for he had his original valve surgery performed, for combined evaluation with both cardiology, CT surgery, and infectious disease for the need for possible repeat surgery and repeat valvular replacement. 3. Infectious endocarditis Based upon the patient's clinical scenario there are concerns of underlying infectious endocarditis. The patient has been noted to be mildly febrile at [facility]. He does have underlying cardiovascular issues concerning for infectious endocarditis. He does not have peripheral stigmata at this time as best as can be noted. However, based upon his ongoing clinical issues he is being further evaluated. This includes laboratory studies, blood cultures, etc. Again he may need further evaluation with transesophageal echocardiogram once stable from a cardiopulmonary standpoint. He has been placed on IV antibiotic therapy. He should also be considered for transfer to a tertiary care center based upon his ongoing issues as described above for the need for combined evaluation which may need to repeat CT surgery of not only his aortic valve but possibly has mitral valve. 4. Pericarditis The patient has progressed with symptoms of chest discomfort, which he describes as positional, worse when lying supine and better when sitting/ leaning forward, concerning for pericarditis. At the same time his auscultatory findings now demonstrate findings compatible with an underlying pericardial friction rub as well as his cardiac murmurs attributed to his aortic and mitral valve disease process. His ECG pattern also demonstrates a change which could be related to an underlying pericardial disease process as well. He will continue his evaluation for his concerns of his acute appearing CHF/ volume overload and pulmonary edema superimposed upon his valvular heart disease and concerns of possible underlying infectious endocarditis. At the same time, based upon concerns of pericarditis he will also receive additional medical therapy with respect to anti-inflammatory therapy-nonsteroidal. Comment: The above was discussed with the patient and his family members present. He will continue evaluation care as noted above. Attempts are being made to advance his transfer to the [facility]-which has accepted him-for further comprehensive evaluation and care. This note was generated with [employer] dictation software. It may contain incorrect words, spelling, and punctuation that were not noted in checking the note before signing.
[2017-11-02] MEDS: Furosemide 100 MG/10 ML Vial 80 MG IV (18:00)
[2017-11-02] MEDS: Ketorolac 15 MG/ML Vial IV (18:00)
[2017-11-02 18:57] LABS: Amphetamine Urine VISTA NEGATIVE (<1000 ng/mL); Barbiturate Urine VISTA NEGATIVE (< 200 ng/mL); Benzodiazepine Urine VISTA NEGATIVE (< 200 ng/mL); Cocaine Urine VISTA NEGATIVE (< 300 ng/mL); Ecstacy Urine VISTA NEGATIVE (< 500 ng/mL); Methadone Urine VISTA NEGATIVE (< 300 ng/mL); PCP Urine VISTA NEGATIVE (< 25 ng/mL); THC Urine VISTA POSITIVE (< 50 ng/mL); Vista UDS pH Range 5
--- NOTE | 2017-11-02 19:28 | CCHN_ITS ---
Hospitalist Note I talked with cardiology today earlier this morning, they request the patient be transferred out due to his aortic valve insufficiency and his endocarditis, after waiting most of the day today, [facility] has confirmed a bed and he will be transferred to [facility] for further care. Patient and patient's family are aware
--- NOTE | 2017-11-02 20:18 | NURSING ---
report given to adelaida
--- NOTE | 2017-11-03 20:15 | PCM.DC.SUM ---
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 #4 acute hypoxic respiratory failure - Secondary Discharge Diagnosis Chronic Problems (Last Reviewed 08/04/17 @ 11:09 by Anatoly Helms MD) Moderate aortic stenosis (Chronic) Non-rheumatic mitral regurgitation (Chronic) Non-rheumatic aortic regurgitation (Chronic) Left ventricular hypertrophy (Chronic) H/O aortic valve replacement (Chronic 07/18/02) 23 mm aortic homograft @ [facility] Hospital Course and Treatment Operations: None Procedures: 2-D Echocardiogram Summary of Care Provided: The patient is a 37 year old M seen in the emergency room at [facility] with a chief complaint of shortness of breath and chest discomfort which she described as burning in nature. Patient had a cough which was nonproductive. Initial evaluation in the emergency room included a chest x-ray which showed no acute process, patient was not requiring oxygen initially but subsequently required oxygen and was reevaluated and lung sounds had changed and the patient was having blood streaked clear sputum. Patient was on 4 L and was saturating approximately 85%, repeat chest x-ray obtained revealed acute pulmonary edema, CTA of the chest had been done which showed mild interstitial injuries in the lower and upper lung siegel prior to the repeat chest x-ray which showed pulmonary edema. Cardiology was contacted, patient was admitted to ICU and underwent an echocardiogram which showed severe AI and mitral regurg, it also showed what appeared to be a vegetation on the aortic valve. Patient continued to have problems with hypoxia and for a time was on BiPAP. It was felt the best course for the patient would be to transfer him out to a tertiary hospital for evaluation of his severe AI and valvular disease. Before the patient was transferred, he was seen in consultation by infectious diseases and started on IV antibiotics. On 11/02/17, patient was seen and examined by myself and felt to be stable for discharge to a tertiary facility for further senior care Medications: Medications to take at Discharge NK [NK] 11/02/17 Primary Care Physician: Danelle Cortez [Primary Care Provider] - Patient Instructions: ED Chest Pain NonCardiac Disposition: Acute care Hospital Minutes spent on discharge:: 35 Patient Condition:: Stable Medical Necessity - Tobacco Use Smoking Status: Current every day smoker Meaningful Use Info Meaningful Use Diagnoses (Choose all that apply): CHF - CHF LEAH/ARB ordered at discharge?: No Reason LEAH/ARB not ordered?: Allergy - Patient was transferred to a tertiary facility for emergent care Documented LVEF (%): 65 Code Visit OBSV E&M: 97713 Observ/hosp same date L3
--- NOTE | 2017-11-03 20:23 | DS.PCM_ITS ---
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 #4 acute hypoxic respiratory failure - Secondary Discharge Diagnosis Chronic Problems (Last Reviewed 08/04/17 @ 11:09 by Anatoly Helms MD) Moderate aortic stenosis (Chronic) Non-rheumatic mitral regurgitation (Chronic) Non-rheumatic aortic regurgitation (Chronic) Left ventricular hypertrophy (Chronic) H/O aortic valve replacement (Chronic 07/18/02) 23 mm aortic homograft @ [facility] Hospital Course and Treatment Operations: None Procedures: 2-D Echocardiogram Summary of Care Provided: The patient is a 37 year old M seen in the emergency room at [facility] with a chief complaint of shortness of breath and chest discomfort which she described as burning in nature. Patient had a cough which was nonproductive. Initial evaluation in the emergency room included a chest x-ray which showed no acute process, patient was not requiring oxygen initially but subsequently required oxygen and was reevaluated and lung sounds had changed and the patient was having blood streaked clear sputum. Patient was on 4 L and was saturating approximately 85%, repeat chest x-ray obtained revealed acute pulmonary edema, CTA of the chest had been done which showed mild interstitial injuries in the lower and upper lung siegel prior to the repeat chest x-ray which showed pulmonary edema. Cardiology was contacted, patient was admitted to ICU and underwent an echocardiogram which showed severe AI and mitral regurg , it also showed what appeared to be a vegetation on the aortic valve. Patient continued to have problems with hypoxia and for a time was on BiPAP. It was felt the best course for the patient would be to transfer him out to a tertiary hospital for evaluation of his severe AI and valvular disease. Before the patient was transferred, he was seen in consultation by infectious diseases and started on IV antibiotics. On 11/02/17, patient was seen and examined by myself and felt to be stable for discharge to a tertiary facility for further [facility]FP Medications: Medications to take at Discharge NK [NK] 11/02/17 Primary Care Physician: Danelle Cortez [Primary Care Provider] - Patient Instructions: ED Chest Pain NonCardiac Disposition: Acute care Hospital Minutes spent on discharge:: 35 Patient Condition:: Stable Medical Necessity - Tobacco Use Smoking Status: Current every day smoker Meaningful Use Info Meaningful Use Diagnoses (Choose all that apply): CHF - CHF LEAH/ARB ordered at discharge?: No Reason LEAH/ARB not ordered?: Allergy - Patient was transferred to a tertiary facility for emergent care Documented LVEF (%): 65 Code Visit OBSV E&M: 16006 Observ/hosp same date L3
== END 2017-11-02 20:20 | disposition short-term general hospital (02) | DRG 126 ==
LOC: ED 03:18 → ICU 06:16
PROVIDERS: Internal Medicine Critical Care Medicine; Internal Medicine Infectious Disease; Admitting Provider Family Medicine; Emergency Provider Emergency Medicine; Visit Provider Internal Medicine
DX: I33.0 Acute and subacute infective endocarditis (principal); I50.31 Acute diastolic (congestive) heart failure; J96.01 Acute respiratory failure with hypoxia; I35.2 Nonrheumatic aortic (valve) stenosis with insufficiency; I34.0 Nonrheumatic mitral (valve) insufficiency; Z95.3 Presence of xenogenic heart valve; I31.9 Disease of pericardium, unspecified; F31.9 Bipolar disorder, unspecified; F17.200 Nicotine dependence, unspecified, uncomplicated
CPT/HCPCS: 36600; 71045; 71046; 71275; 80048; 80307; 82803; 83880; 84484; 85025; 85379; 87040; 87641; 93005; 93306; 94002; 99283; J7040; Q9967; A4216; J1940

== ENCOUNTER 2018-07-31 09:07 | Emergency (ER) | payer MEDICAID, SELFPAY ==
[2018-07-31 09:08] VITALS: BP 122/87; PULSE 82; RESP 16; TEMP 36.1; O2SAT 99; BMI 22.5
--- NOTE | 2018-07-31 09:49 | ED.VISSUMM ---
- ER Visit Summary Date of Service: 07/31/18 Chief Complaint: Low back pain History of Present Illness: The patient is a 37 M history of back problems. Also prior aortic valve replacement x2 and mitral valve repaired. Patient states for approximately 1 week he has had low back pain. Denies fall, injury or trauma. No fever. Has had pain like this before this is more severe. Is never had back surgery. Said at times it does radiate down his left buttock and into his left hamstring. Denies any bowel or bladder incontinence. No leg weakness or numbness. Physical Examination: Young male no acute distress. Vital signs are stable and afebrile. HEENT exam unremarkable. Neck nontender no lymphadenopathy. Lungs clear to auscultation bilaterally. Heart regular rhythm rate about 80 with a systolic ejection murmur. Abdomen is soft and nontender. Normal bowel sounds no peritoneal signs. Patient is moving all 4 extremities. Neurovascular intact. 5 out of 5 cut out worker strength to both upper extremities with normal range of motion and sensation. 5 out of 5 dorsi plantarflexion of both lower extremities. Positive straight leg raise at the left at about 15 to 30 degrees. No cauda equina. No saddle anesthesia. Normal medial thigh sensation. Back minimal tenderness at the L1-3 region. No redness or warmth. No signs of trauma neurologically is awake and alert with no focal motor or sensory deficits. NIH score is 0. Again no leg weakness or numbness. Test Results: I explained to the patient that he may need an MRI in the near future if this does not improve. Emergency Department Course and Treatment: Naprosyn here for pain. Treatment Plan: Naprosyn for pain and inflammation and limited [place] for pain. Follow-up with the start since clinic. If pain not improving he needs an MRI. Disposition: Discharge Impression: Acute low back pain with radiculopathy Rule out degenerative disc disease This note was generated with Rdio dictation software. It may contain incorrect words, spelling, and punctuation that were not noted in review of the chart prior to signing ED Disposition - Plan for ED Patient: Referrals: Kaylee Kong,Danelle Wallace [Primary Care Provider] -
--- NOTE | 2018-07-31 09:52 | ED.DCSUM_ITS ---
- ER Visit Summary Date of Service: 07/31/18 Chief Complaint: Low back pain History of Present Illness: The patient is a 37 M history of back problems. Also prior aortic valve replacement x2 and mitral valve repaired. Patient states for approximately 1 week he has had low back pain. Denies fall, injury o r trauma. No fever. Has had pain like this before this is more severe. Is never had back surgery. Said at times it does radiate down his left buttock and into his left hamstring. Denies any bowel or bladder incontinence. No leg weakness or numbness. Physical Examination: Young male no acute distress. Vital signs are stable and afebrile. HEENT exam unremarkable. Neck nontender no lymphadenopathy. Lungs clear to auscultation bilaterally. Heart regular rhythm rate about 80 with a systolic ejection murmur. Abdomen is soft and nontender. Normal bowel sounds no peritoneal signs. Patient is moving all 4 extremities. Neurovascular intact. 5 out of 5 manager client service strength to both upper extremities with normal range of motion and sensation. 5 out of 5 dorsi plantarflexion of both lower extremities. Positive straight leg raise at the left at about 15 to 30 degrees. No cauda equina. No saddle anesthesia. Normal medial thigh sensation. Back minimal tenderness at the L1-3 region. No redness or warmth. No signs of trauma neurologically is awake and alert with no focal motor or sensory deficits. NIH score is 0. Again no leg weakness or numbness. Test Results: I explained to the patient that he may need an MRI in the near future if this does not improve. Emergency Department Course and Treatment: Naprosyn here for pain. Treatment Plan: Naprosyn for pain and inflammation and limited [place] for pain. Follow-up with the start since clinic. If pain not improving he needs an MRI. Disposition: Discharge Impression: Acute low back pain with radiculopathy Rule out degenerative disc disease This note was generated with Pinger dictation software. It may contain incorrect words, spelling, and punctuation that were not noted in review of the chart prior to signing ED Disposition - Plan for ED Patient: Referrals: Kaylee Kong,Danelle Wallace [Primary Care Provider] -
--- NOTE | 2018-07-31 09:54 | DCINST.ED_ITS ---
ED Disposition - Plan for ED Patient: Disposition: Home or Assisted Living Instructions: ED Neck Back Pain General Prescriptions: Hydrocodone Bitart/Apap 5-325 [[place] 5MG-325MG] 1 tab PO Q4H PRN PRN 2 Days #10 tab PRN Reason: Pain Naproxen [Naprosyn] 500 mg PO BID PRN PRN #20 tab PRN Reason: Pain Referrals: [facility],Danelle Wallace [Primary Care Provider] - As soon as possible Additional Instructions: If not improving or getting worse you are going to need MRI of your lumbar back to evaluate the discs. Naprosyn for pain and inflammation. [place] for stronger pain.
[2018-07-31] MEDS: Naproxen 500 MG Tablet PO (09:58)
== END 2018-07-31 10:00 | disposition home or self-care (01) ==
PROVIDERS: Emergency Provider Emergency Medicine
DX: M54.10 Radiculopathy, site unspecified (principal); M54.5 Low back pain; R05 Cough; Z72.0 Tobacco use; Z95.2 Presence of prosthetic heart valve
CPT/HCPCS: 99283

== ENCOUNTER → 2020-05-08 11:50 | Outpatient (CLI) | payer BC, MEDICAID, SELFPAY ==
--- NOTE | 2020-05-08 17:56 | STRESSREP_ITS ---
Stress Test Report Date: 05-08-2020 Procedure: Exercise tolerance test Indications: Chest pain; aortic valve replacement-2002; aortic valve replacement-2018; mitral valve repair-2017 Consent: Per the patient Procedure: The patient exercised on a Supa protocol for 9 minutes completing stage III achieving a peak heart rate of 136 bpm (74% predicted maximal heart rate) with a peak blood pressure 136/78 mmHg and a peak MET capacity of approximately 10 MET's. The baseline ECG demonstrated normal sinus rhythm. The peak exercise ECG demonstrated no obvious ECG changes with a heart rate achieved. There were no cardiac dysrhythmias pretest, during exercise, or recovery. The functional capacity was considered good. The patient had no complaint of chest discomfort during exercise or recovery. The examination was discontinued secondary to dyspnea. Impression: 1. Technically inadequate (percent predicted maximal heart rate less than 85%) exercise tolerance test 2. Peak exercise ECG with no obvious ECG changes at the heart rate achieved 3. There were no cardiac dysrhythmias during exercise or recovery This note was generated with [employer] software. It may contain incorrect words, spelling, and punctuation that were not noted in checking the note before signing.
== END ==
PROVIDERS: PCP Family Medicine; Referring Provider Family Medicine; Visit Provider Family Medicine
DX: R07.9 Chest pain, unspecified (principal)
CPT/HCPCS: 93017

== ENCOUNTER 2024-04-15 09:26 | Emergency (ER) | payer MEDICAID, SELFPAY ==
[2024-04-15 09:27] VITALS: BP 117/93; PULSE 94; RESP 25; TEMP 30.3; O2SAT 100; BMI 23.4
[2024-04-15 09:31] VITALS: BP 128/96; PULSE 93; RESP 26; TEMP 30.3; O2SAT 100
--- NOTE | 2024-04-15 09:47 | EKG12_ITS ---
Test Reason : CP Blood Pressure : */* mmHG Vent. Rate : 99 BPM Atrial Rate : 99 BPM P-R Int : 130 ms QRS Dur : 86 ms QT Int : 362 ms P-R-T Axes : 67 75 79 degrees QTcB Int : 464 ms Normal sinus rhythm Left atrial enlargement Borderline ECG Confirmed by HAYES MARTINEZ, CORY ([id number]), editor news AIDAN CASTILLO ([id number]) on 04/17/2024 11:04:22 AM Referred By: TANG Confirmed By: CORY KOO MD
[2024-04-15] MEDS: 0.9% Normal Saline (1000mL) 1,000 ML 1000 ML IV (09:56)
[2024-04-15] MEDS: Ondansetron 4 MG/2 ML Vial IV (09:56)
[2024-04-15] MEDS: LORazepam 2 MG/ML Syringe 1 MG IV (09:57)
--- NOTE | 2024-04-15 10:00 | EX.ED.DYSGE1 ---
HPI History of Present Illness Chief Complaint: General Illness Informant: patient, spouse/S.O., family and EMS Narrative Narrative: 43-year-old male arriving by EMS with the chief complaint of vomiting and diarrhea. Patient notes leg cramps. He states that he was feeling fine yesterday. Several family members have had vomiting and diarrhea recently. He states that he is extremely nauseous and has dry mouth. He states that he developed a chest pressure. He notes cramping of his legs. He notes abdominal cramping. He states he is currently not on any medications. He states that he has had an aortic valve replacement and a mitral valve issue but he does not know why that happened. Review of his chart shows a history of infectious endocarditis. It has been reported that the patient was in the shower for an hour and a half prior to arrival. [facility] Medical History (Updated 04/15/24 @ 12:[address] Richard Jerez DO) Bipolar disorder Non-rheumatic mitral regurgitation Non-rheumatic aortic regurgitation Left ventricular hypertrophy Home Medications ?Medication ?Instructions ?Recorded ?Last Taken ?Type metoprolol succinate 50 mg 50 mg PO DAILY 04/15/24 Unknown History tablet,extended release 24 hr ondansetron 4 mg disintegrating 4 mg PO Q6H PRN PRN Nausea #15 tabs 04/15/24 Unknown Rx tablet Allergy/AdvReac Type Severity Reaction Status Date / Time No Known Allergies Allergy Verified 04/15/24 09:34 Surgical History H/O aortic valve replacement (07/18/02) Social History Smoking Status: Current every day smoker tobacco type: e-cigarettes alcohol intake: current alcohol intake frequency: a few times a month caffeine: Yes (recently stop) ROS ROS ED Constitutional Constitutional ED: Reports chills and sweats; Denies fever(s) or weight loss Eyes Eyes: Denies change in vision or diplopia ENT ENT ED: Reports other Details: Dry mouth ; Denies ear pain, rhinorrhea or sore throat Cardiovascular Cardiovascular: Reports chest pain; Denies orthopnea, palpitations or racing heartbeat Respiratory/Chest Respiratory/Chest: Denies cough, dyspnea or orthopnea Gastrointestinal Gastrointestinal: Reports abdominal pain, diarrhea, nausea and vomiting Genitourinary Genitourinary ED: Denies dysuria, hematuria or urinary frequency Musculoskeletal Musculoskeletal: Reports other Details: Leg cramps ; Denies arthralgias or myalgias Integumentary Denies abscess or rash Neurologic Neurologic: Denies headache(s) or weakness Psychiatric Psychiatric: Denies anxiety, depression, suicidal ideation or suicidal thoughts Endocrine Endocrinology: Denies polydipsia, polyphagia or polyuria Allergic/Immunologic Allergic/Immunologic ED: Denies mouth swelling, tongue swelling or urticaria EXAM Physical Exam Const Vital Signs: 04/15/24 09:27 04/15/24 09:31 04/15/24 09:41 Temperature 86.6 F L 86.6 F L Temperature Source Temporal Temporal Pulse Rate 94 93 Respiratory Rate 25 H 26 H Respiratory Effort Short of Breath Respiratory Pattern Tachypnea Blood Pressure 117/93 H 128/96 H Blood Pressure Mean 101 106 Pulse Ox 100 100 Oxygen Delivery Method Room Air Room Air 04/15/24 10:11 04/15/24 10:28 04/15/24 11:30 Temperature 91.6 F L 97.5 F L 98.6 F Temperature Source Oral Temporal Oral Pulse Rate 93 89 Respiratory Rate 18 16 Respiratory Effort Respiratory Pattern Blood Pressure 115/82 H 108/86 H Blood Pressure Mean 93 93 Pulse Ox 100 98 Oxygen Delivery Method Room Air Room Air 04/15/24 12:26 Temperature 98.6 F Temperature Source Oral Pulse Rate 88 Respiratory Rate 16 Respiratory Effort Respiratory Pattern Blood Pressure 113/84 H Blood Pressure Mean 93 Pulse Ox 98 Oxygen Delivery Method Room Air Positive well nourished and well developed General Appearance ED: well developed and pallor HEENT Reports normocephalic, head/scalp atraumatic and moist mucous membranes Eyes PERRL and EOMs intact bilaterally Neck no lymphadenopathy, supple and no JVD Resp normal respiratory effort and clear to auscultation bilaterally Cardio regular rate, regular rhythm and no murmurs GI GI Narrative: Diffusely tender to palpation but the abdomen is still soft. Auscultation: hyperactive bowel sounds Palpation: soft; Negative for rebound tenderness present Back/Spine no CVA tenderness and normal ROM Extremity normal to inspection General Extremety ED: Negative for edema General Extremity: Negative for edema Neuro oriented x3 and CN's II-XII intact bilaterally Sensorium / Orientation: alert Motor Exam: strength 5/5 throughout Psych Psych Narrative: Very dramatic affect Mood & Affect: Negative for depressed or tearful Skin no rashes or lesions noted and no wounds General Skin Exam: pallor MDM MDM History & Record Review Discussion w/independent historian: EMS personnel, Patient and Family Lab Data Attestation: I reviewed the patient's lab results. Labs: Laboratory Results - last 24 hr 04/15/24 09:45 WBC 23.5 H RBC 6.20 Hgb 18.0 H* Hct 55.2 H MCV 89.0 MCH 29.0 MCHC 32.6 RDW Std Deviation 42.5 RDW Coeff of Lily 13.1 Plt Count 215 MPV 10.6 Immature Gran % (Auto) 0.600 Neut % (Auto) 85.4 H Lymph % (Auto) 4.5 L [place] % (Auto) 4.8 Eos % (Auto) 4.2 Baso % (Auto) 0.5 Absolute Neuts (auto) 20.1 H Absolute Lymphs (auto) 1.05 Nucleated RBC % 0 Diff Path Review May foll Sodium 137 Potassium 5.0 Chloride 106 Carbon Dioxide 22.0 Anion Gap 9 BUN 16 Creatinine 1.58 H Estim Creat Clear Calc 65.53 Est GFR (MDRD) Af Amer 62 Est GFR (MDRD) Non-Af 52 L BUN/Creatinine Ratio 10.1 Glucose 157 H Calcium 10.5 H Total Bilirubin 1.00 Direct Bilirubin 0.23 AST 29 ALT 32 Alkaline Phosphatase 107 Troponin I High Sens 18 Total Protein 9.8 H Albumin 5.1 H Globulin 4.7 H Lipase 105 H Radiography Diagnostic Testing: Clinical Impression(s) from Imaging Studies Chest X-Ray 04/15/24 10:05 IMPRESSION: No acute cardiopulmonary abnormality. Postop changes as described above. Electronically Signed: Cuba Marcelo MD at 10:23 EST , Abdomen/Pelvis CT 04/15/24 10:49 IMPRESSION: 1. Question mild typhlitis. 2. Normal appendix. Electronically Signed: Cuba Marcelo MD at 11:33 EST , EKG Initial EKG: Attestation: I personally reviewed and interpreted this EKG as follows: Comments: Normal sinus rhythm ventricular rate of 99 bpm. Discharge Plan Triage Chief Complaint: General Illness ED Provider: Richard Jerez Dx/Rx/DC Orders Clinical Impression: Gastroenteritis, Hypothermia Instructions: Viral Gastroenteritis Prescriptions: New ondansetron 4 mg tablet,disintegrating 4 mg PO Q6H PRN PRN (Reason: Nausea) Qty: 15 0RF No Action metoprolol succinate 50 mg tablet extended release 24 hr 50 mg PO DAILY Primary Care Provider: Saqib Dempsey Referrals: Saqib Dempsey MD [[facility]] - As Needed Print Language: Bermudian Disposition Disposition: Home, Self Care
--- NOTE | 2024-04-15 10:05 | RAD_ITS ---
EXAM: XR CHEST, 1 VIEW CLINICAL INDICATION: CHEST PAIN TECHNIQUE: Frontal view of the chest. COMPARISON: XR Chest dated 11/02/2017 FINDINGS: LUNGS AND PLEURAL SPACES: Normal. No consolidation or edema. No pneumothorax. No effusion. HEART: Aortic and mitral valve prostheses are in place. MEDIASTINUM: No mediastinal or hilar mass. BONES/JOINTS: Sternotomy wires are present. RAD/Chest 1 View (Portable) IMPRESSION: No acute cardiopulmonary abnormality. Postop changes as described above. Electronically Signed: Cuba Marcelo MD at 10:23 EST ,
[2024-04-15 10:06] LABS: Absolute Lymphocyte Count 1.05 X10^3/uL (0.83-4.51); Absolute Neutrophil Count 20.1 X10^3/uL (2.0-7.7); Basophil# 0.11 X10^3/uL; Basophil% 0.5 % (0-1); Eosinophil# 0.99 X10^3/uL; Eosinophils% 4.2 % (0-5); Hematocrit 55.2 % (40-54); Lymphocyte # 1.05 X10^3/ul (0.83-4.51); Lymphocyte % 4.5 % (19-41); Mean Corp Hgb Conc 32.6 g/dL (32-36); Mean Platelet Vol. 10.6 fl (6.2-12.0); Monocyte# 1.13 X10^3/uL; Monocyte% 4.8 % (0-10); NRBC Flagged by Analyzer 0 % (0-5); Neutrophil # 20.05 X10^3/uL (2.7-7.7); Neutrophil % 85.4 % (47-70); POSITIVE DIFFERENTIAL YES; Platelet Count 215 K/mm3 (150-450); RBC Distribution Width CV 13.1 % (11.6-14.6); RBC Distribution Width SD 42.5 fl (35.1-43.9); White Blood Count 23.5 K/mm3 (4.4-11.0)
[2024-04-15 10:08] LABS: Differential Indicated SCAN CRITERIA MET
[2024-04-15 10:11] VITALS: TEMP 33.1
[2024-04-15 10:27] LABS: AST(SGOT) 29 U/L (15-37); Alanine Aminotransfer ALT/SGPT 32 U/L (16-61); Albumin, Serum 5.1 g/dL (3.2-5.0); Alkaline Phosphatase 107 U/L (45-117); Anion Gap 9 (5-15); BUN 16 mg/dL (7-18); BUN/Creat Ratio 10.1 RATIO (10-20); Bilirubin, Direct 0.23 mg/dL (0.00-0.30); Calcium,Total 10.5 mg/dL (8.5-10.1); Chloride 106 mmol/L (98-107); Creatinine, Serum 1.58 mg/dL (0.70-1.30); EST Glomerular Filtration Rate 52 mL/min (>60); Est Glom Filt Rate - Afr Amer 62 mL/min (>60); Estimated Creatinine Clearance 65.53 ml/min; Globulin 4.7 g/dL (2.2-4.2); Glucose 157 mg/dL (74-106); Lipase 105 U/L (13-75); Protein, Total 9.8 g/dL (6.4-8.2); Sodium Level 137 mmol/L (136-145); Troponin-I HS 18 pg/mL (3.0-78.0)
[2024-04-15 10:28] VITALS: BP 115/82; PULSE 93; RESP 18; TEMP 36.4; O2SAT 100
--- NOTE | 2024-04-15 10:49 | CT_ITS ---
EXAM: CT ABDOMEN AND PELVIS WITH INTRAVENOUS CONTRAST CLINICAL INDICATION: colitis TECHNIQUE: Helically acquired images were obtained of the abdomen and pelvis with intravenous contrast. This CT exam was performed using one or more of the following dose reduction techniques: automated exposure control, adjustment of the mA and/or kV according to patient size, and/or use of iterative reconstruction technique. CONTRAST: IV 100mL Isovue-370 COMPARISON: No relevant prior studies available. FINDINGS: LOWER THORAX: Normal. Lung bases are clear. No cardiomegaly. No pericardial effusion. ABDOMEN: LIVER: Normal. Homogeneous. No focal mass. GALLBLADDER AND BILE DUCTS: Normal. No calcified gallstones. No gallbladder distention or wall edema. No intra- or extrahepatic biliary ductal dilation. PANCREAS: Normal. No focal cystic or solid mass. SPLEEN: Normal. Normal size without focal cystic or solid mass. ADRENALS: Normal. No nodules. KIDNEYS AND URETERS: Normal. Normal renal size and position. No hydronephrosis. STOMACH AND BOWEL: Question focal bowel wall thickening of the cecum. PELVIS: APPENDIX: Appendix is visualized and normal in appearance. BLADDER: Normal. REPRODUCTIVE: Unremarkable as visualized. No mass. ABDOMEN and PELVIS: INTRAPERITONEAL SPACE: Normal. No ascites or other fluid collection. No free air. BONES/JOINTS: No suspicious lytic or blastic abnormality. SOFT TISSUES: Normal. No discrete abdominal or pelvic wall hernia. VASCULATURE: Normal. Abdominal aorta is non-dilated. LYMPH NODES: Small reactive mesenteric lymph nodes are seen within the right lower quadrant. CT/Abdomen/Pelvis W IV Cont ONLY IMPRESSION: 1. Question mild typhlitis. 2. Normal appendix. Electronically Signed: Cuba Marcelo MD at 11:33 EST ,
[2024-04-15 11:30] VITALS: BP 108/86; PULSE 89; RESP 16; TEMP 37; O2SAT 98
[2024-04-15 12:26] VITALS: BP 113/84; PULSE 88; RESP 16; TEMP 37; O2SAT 98
--- NOTE | 2024-04-15 12:40 | ED.RN ---
temp now 99.3- turned off bear hugger
[2024-04-17 16:01] LABS: Pathologist Review Reviewed
== END 2024-04-15 12:48 | disposition home or self-care (01) ==
PROVIDERS: Emergency Provider Emergency Medicine; PCP Family Medicine; Visit Provider Emergency Medicine
DX: K52.9 Noninfective gastroenteritis and colitis, unspecified (principal); R68.0 Hypothermia, not associated with low environmental temperature; F17.290 Nicotine dependence, other tobacco product, uncomplicated